=== PATIENT | female | born 1955 | race Caucasian/White ===

== ENCOUNTER 2020-09-24 07:51 | Outpatient (REF) | payer OTHER, SELFPAY ==
--- NOTE | 2020-09-26 07:59 | MHC.AU.P13 ---
Adult Audiological Evaluation Date of Visit: 09/24/20 Syrup Mixer Used: Not Applicable Reason for Appointment: Audiologic re-evaluation due to increasing difficulties hearing and understanding speech. Tricia also reports the left hearing aid intermittently is not working properly. Previous Hearing Test Results: 01/15/2019 [facility] Bilateral moderate to severe sensorineural hearing loss with 100% speech discrimination ability for both ears. Medical History: Medical History: Headache Thyroid Disease History of brain bleed in November 2018 Medication List: Not available for review Hearing Instrument History- Right Ear: Solid Waste Facility Operator: Phonak Model: Bolero Q 70-M13 Serial Number: [id number] Battery Size: 13 Warranty: Dispensed By: [facility] Date of Fittin08/01/2013 Hearing Instrument History- Left Ear: Solid Waste Facility Operator: Phonak Model: Bolero Q 70-M13 Serial Number: [id number] Battery Size: 13 Warranty: Dispensed By: [facility] Date of Fittin08/01/2013 Otoscopy: Right Ear: Unremarkable Left Ear: Unremarkable Tympanometry: Right Ear: Hypercompliant Middle Ear System (Type Ad) Left Ear: Normal Middle Ear System (Type A) Hearing Evaluation: Transducer(s) Used: Insert Earphones Bone Conduction Method: Conventional Audiometry Stimuli Used: Pure Tones Right Ear: Description of Hearing: Moderate sloping to severe sensorineural hearing loss Left Ear: Description of Hearing: Moderate sloping to severe sensorineural hearing loss Speech Recognition Threshold (SRT): Method Used: Monitored Live Voice Stimuli Used: Spondee Words Right Ear: 50 dB HL Left Ear: 50 dB HL Word Discrimination: Method: Recorded Lists Word Lists Used: NU-6 Right Ear: 100% at 85 dB HL Left Ear: 96% at 85 dB HL Comparison: Compared to the most recent evaluation: Hearing is stable. Recommendations: Recommendations: Audiological re-evaluation in one year. Trial with new amplification is recommended due to increased hearing difficulties with the hearing aids despite stable hearing ability. Medical clearance from a physician is required before fitting. Patient plans to contact [facility]. See Hearing Aid Follow-Up note for more information. Diagnosis: Primary Diagnosis: H90.3 Bilateral Sensorineural Hearing Loss Services Performed: Services Performed: Comprehensive Audiological Evaluation (CPT 03609) Tympanometry (CPT 05696) Signature: Provider: Pelon Trujillo, RAMANDEEP-A
--- NOTE | 2020-09-26 08:03 | MHC.AU.P13 ---
Hearing Instrument Follow-Up- Binaural Date of Visit: 09/24/20 Right Ear: Fire Control Assistant: Phonak Model: Yebolero Q 70-M13 Serial Number: [id number] Warranty: Service Plan: Battery Size: 13 Color: [place] Tubing: #2 slim tube Type of Mold: Phonak slim tip [id number] Warranty extended to 09/24/2020 Type of Wax Guard: None Dispensed By: [facility] Date of Fittin08/01/2013 Left Ear: Fire Control Assistant: Phonak Model: Bolero Q 70-M13 Serial Number: [id number] Warranty: Battery Size: 13 Color: [place] Tubing: #2 slim tube Type of Mold: Phonak slim tip [id number] WARRANTY Type of Wax Guard: None Dispensed By: [facility] Date of Fittin08/01/2013 Follow-Up Summary: Patient reports not hearing well with the aids and intermittent distortion from the left aid. Right slim tip received in February 2020 falls off the slim tube and this problem started shortly after being received. Called [email or web address] Customer [employer]. Per Earnestine N/C remake Ref# [id number] will be sent. Cleaned aids, microphones, contacts. Changed slim tubes and patient will use the right tip as she has been until the remake is received. Aids amplifying well, but patient says there is no change in sound quality. Recommend new hearing aids. Discussed Phonak Audeo P 13T in [place] with #2 M receivers for both aids with slim tips. Patient will contact [facility] and a quote will be sent and medical clearance to PCP. Recommendations: Recommendations: Hearing instrument follow-up or maintenance as needed. Please contact our clinic with any questions or concerns. Recommendations (Other): Call patient when right slim tip received and SCHEDULE APPOINTMENT WITH EARMOLD IMPRESSIONS TO BE TAKEN Diagnosis Code(s): Primary Diagnosis: H90.3 Bilateral Sensorineural Hearing Loss Services Performed: Hearing Aid Maintenance and Hearing Aid Evaluation: Signature: Provider: Pelon Trujillo, [facility]
--- NOTE | 2020-09-26 08:08 | MHC.AU.MED ---
Medical Clearance for Hearing Instrumentation Date: 09/26/20 Patient Name: Tricia Chua Date of : 1955 Primary Care Provider: Referring Provider: Xander Angelo MD We have seen your patient on 09/26/20 and have determined that they are a candidate for amplification (See accompanying report). Specifically, they would benefit from: Hearing aid use in both ears There is a statute that addresses Medical Evaluation Requirements prior to fitting a patient with a hearing aid. According to [place] statute 265 CMR:6.03(1), (a) General. Except as provided in 265 CMR 6.03(1)(b), a hearing therapist shall not sell a hearing aid unless the prospective user has presented to the hearing therapist a written statement signed by a licensed physician that states that the patient's hearing loss has been medically evaluated and the patient may be considered a candidate for a hearing aid. The medical evaluation must have taken place within the preceding six months. Please note: Due to the [place] Statute referenced above, we cannot accept a signature other than that of a licensed physician. BOOM STICK MAN and PA signatures cannot be accepted. I am in agreement with the above recommendation. There is no medical contraindication for hearing instrumentation. Physician Signature Date Physician Name (Printed)
== END 2020-09-24 07:52 | disposition home or self-care (01) ==
LOC: HO.SH 07:51
PROVIDERS: Visit Provider Internal Medicine
DX: H90.3 Sensorineural hearing loss, bilateral (principal)
CPT/HCPCS: 92557; 92567

== ENCOUNTER 2020-10-16 09:57 | Outpatient (REF) | payer SELFPAY | END 2020-10-16 09:58 | disposition home or self-care (01) | LOC: HO.HAP 09:57 | PROVIDERS: Visit Provider Internal Medicine | DX: Z13.89 Encounter for screening for other disorder (principal) ==

== ENCOUNTER 2020-10-31 08:56 | Outpatient (REF) | payer SELFPAY | END 2020-10-31 08:57 | disposition home or self-care (01) | LOC: HO.HAP 08:56 | PROVIDERS: Visit Provider Internal Medicine | DX: Z13.89 Encounter for screening for other disorder (principal) ==

== ENCOUNTER 2021-09-16 08:44 | Outpatient (REF) | payer SELFPAY ==
--- NOTE | 2021-09-16 13:52 | MHC.AU.HFU ---
Hearing Instrument Follow-Up- Binaural Date of Visit: 09/16/21 Right Ear: Agri Business Agent: Phonak Model: Bolero Q 70-M13 Serial Number: [id number] Repair Warranty: Battery Size: 13 Color: [place] Tubing: #2 slim tube Type of Mold: Phonak slim tip, [id number], Warranty extended to 09/24/2020 Type of Wax Guard: None Dispensed By: [facility] Date of Fittin08/01/2013 Left Ear: Agri Business Agent: Phonak Model: Bolero Q 70-M13 Serial Number: [id number] Repair Warranty: Battery Size: 13 Color: [place] Tubing: #1 slim tube Type of Mold: Phonak slim tip, [id number], WARRANTY Type of Wax Guard: None Dispensed By: [facility] Date of Fittin08/01/2013 Follow-Up Summary: Patient reports that she accidentally broke a piece of her right slim tip off while cleaning it. She is unsure if she needs a new mold, or if an older right-sided slim tip that she kept could be put on it. Both hearing aids were inspected and cleaned. Slim tubes replaced. The older slim tip was placed on the right hearing aid. Patient reports that for now, the old slim tip feels and sounds good. An impression was taken of the right ear in case issues arise with the older right slim tip and a new slim tip needs to be ordered. It will be kept in the hold drawer until we hear from the patient. Recommendations: Hearing instrument follow-up or maintenance as needed. Paid $10 for maintenance. Diagnosis Code(s): Primary Diagnosis: H90.3 Bilateral Sensorineural Hearing Loss Signature: Provider: Pelon Mcconnell, [facility]
== END 2021-09-16 08:45 | disposition home or self-care (01) ==
LOC: HO.HAP 08:44
PROVIDERS: Visit Provider Internal Medicine
DX: Z46.1 Encounter for fitting and adjustment of hearing aid (principal); H90.3 Sensorineural hearing loss, bilateral
CPT/HCPCS: 99499

== ENCOUNTER 2021-12-09 11:23 | Outpatient (REF) | payer MEDICARE, OTHER, SELFPAY ==
--- NOTE | 2021-12-09 13:29 | MHC.AU.MED ---
Medical Clearance for Hearing Instrumentation Date: 12/09/21 Patient Name: Tricia Edward Date of : 1955 Primary Care Provider: Referring Provider: Xander Angelo MD We have seen your patient on 12/09/21 and have determined that they are a candidate for amplification (See accompanying report). Specifically, they would benefit from: Hearing aid use in both ears There is a statute that addresses Medical Evaluation Requirements prior to fitting a patient with a hearing aid. According to [place] statute 265 CMR:6.03(1), (a) General. Except as provided in 265 CMR 6.03(1)(b), a floor space allocator shall not sell a hearing aid unless the prospective user has presented to the floor space allocator a written statement signed by a licensed physician that states that the patient's hearing loss has been medically evaluated and the patient may be considered a candidate for a hearing aid. The medical evaluation must have taken place within the preceding six months. Please note: Due to the [place] Statute referenced above, we cannot accept a signature other than that of a licensed physician. SCENE PAINTER and PA signatures cannot be accepted. I am in agreement with the above recommendation. There is no medical contraindication for hearing instrumentation. Physician Signature Date Physician Name (Printed)
--- NOTE | 2021-12-09 13:39 | MHC.AU.HAS ---
Hearing Aid Evaluation Date of Visit: 12/09/21 Historical Information: Description of Hearing: Moderate to severe sensorineural hearing loss bilaterally. Current personal amplification information, if applicable: 2012 binaural Phonak Bolero Q 70-M13 BTE with slim tubes and canal tips Hearing Aid Prescription: Based on the individual?s shared listening needs, communication environments, dexterity, desire for connectivity, and personal preferences, the following prescription for amplification has been made: Right ear: Livestock Broker: Phonak Model: Audeo P 13T NEED TO KNOW TECHNOLOGY LEVEL Battery Size: 13 Color: [place] Tubing: #1 Power Type of Mold: Phonak Canal Lock C-Shell Left ear: Left ear prescription to be same as Right Hearing Aid above: Livestock Broker: Phonak Model: Audeo P 13T NEED TECHNOLOGY LEVEL PATIENT CHOOSES Battery Size: 13 Color: [place] Patriot Missile Air Defense Artillery: #1 Power Type of Mold: Phonak Canal Lock C-Shell Action Taken/Action Needed: Earmold Impressions Taken Comments: Patient plans to contact [facility] to determine if she is eligible for services. If not eligible, patient needs to tell which technology level she wants to order. DID NOT PAY $350.00 deposit fee. Primary Diagnosis: H90.3 Bilateral Sensorineural Hearing Loss Signature:Provider: Meron Trujillo, CCC-A
--- NOTE | 2021-12-21 11:51 | MHC.AU.AHA ---
Adult Audiological Evaluation Date of Visit: 12/09/21 Institutional Asset Manager Used: Not Applicable Reason for Appointment: Audiologic re-evaluation due to increasing speech understanding difficulties. Tricia has a history of bilateral hearing loss and uses binaural hearing aids obtained through [facility] ([facility]) in 2012. She also has a history of stroke in 2010 and brain bleed in 2018 and reports her ability to process auditory information is more difficult and slower, particularly when others speak quickly to her, from a distance/different room, or background noise is present. Previous Hearing Test Results: 09/24/2020 [facility] Moderate to moderately-severe sensorineural hearing loss bilaterally with 100% speech understanding for the right ear and 96% for the left ear at 85 dB HL in the ideal quiet environment. Medical History: Medical History: Headache, Stroke, Thyroid Disease, History of brain bleed in November 2018 Medication List: Atorvastatin, Levothyroxine, Aspirin Hearing Instrument History- Right Ear: Fruit And Vegetable Packer: [employer] Model: AutoAlert 70-M13 Serial Number: [id number] Battery Size: 13 Repair Warranty: 2015 Dispensed By: [facility] Date of Fittin08/01/2013 Hearing Instrument History- Left Ear: Fruit And Vegetable Packer: [employer] Model: [employer] Q 70-M13 Serial Number: [id number] Battery Size: 13 Repair Warranty: 2015 [facility] Date of Fittin08/01/2013 Otoscopy: Right Ear: Unremarkable Left Ear: Unremarkable Tympanometry: Not performed at today's visit Hearing Evaluation: Transducer(s) Used: Insert Earphones Bone Conduction Method: Conventional Audiometry Stimuli Used: Pure Tones Right Ear: Description of Hearing: Moderate to severe sensorineural hearing loss. Left Ear: Description of Hearing: Moderate to severe sensorineural hearing loss. Speech Recognition Threshold (SRT): Method Used: Monitored Live Voice Stimuli Used: Spondee Words Right Ear: 45 dB HL Left Ear: 50 dB HL Word Discrimination: Method: Recorded Lists Word Lists Used: NU-6 Right Ear: 92% at 85 dB HL Left Ear: 92% at 85 dB HL Most Comfortable Level (MCL): Right Ear: 85 dB HL Left Ear: 85 dB HL QuickSIN: Binaural Quick SIN Test: 8 dB SNR Loss, suggesting Tricia experiences a moderate degree of difficulty understanding speech with increasing levels of background noise when in this controlled test environment. Real world listening situations are likely to be much more difficult for Tricia. Comparison: Compared to the most recent evaluation: Hearing is stable. Recommendations: Trial with new amplification is recommended. Medical clearance from a physician is required before fitting. Patient plans to contact [facility] ([facility]). If Tricia is not eligible for [facility] services, she is advised to call the office to discuss which technology level for the new hearing aids she would like to order. Hearing aid maintenance performed today. Audiological re-evaluation in one year. Will send a reminder card. Diagnosis: Primary Diagnosis: H90.3 Bilateral Sensorineural Hearing Loss Services Performed: Comprehensive Audiological Evaluation (CPT 10871) Signature: Provider: Pelon Trujillo, CCC-A
== END 2021-12-09 11:24 | disposition home or self-care (01) ==
LOC: HO.SH 11:23
PROVIDERS: Visit Provider Internal Medicine
DX: Z01.118 Encounter for examination of ears and hearing with other abnormal findings (principal); H90.3 Sensorineural hearing loss, bilateral
CPT/HCPCS: 92557

== ENCOUNTER 2023-03-29 08:23 | Outpatient (REF) | payer SELFPAY | END 2023-03-29 08:24 | disposition home or self-care (01) | LOC: HO.HAP 08:23 | PROVIDERS: Visit Provider Internal Medicine | DX: Z13.89 Encounter for screening for other disorder (principal) ==

== ENCOUNTER 2023-04-13 09:09 | Outpatient (REF) | payer MEDICARE, OTHER, SELFPAY | END 2023-04-13 09:10 | disposition home or self-care (01) | LOC: HO.SH 09:09 | PROVIDERS: Visit Provider Internal Medicine | DX: Z01.118 Encounter for examination of ears and hearing with other abnormal findings (principal); H90.3 Sensorineural hearing loss, bilateral | CPT/HCPCS: 92557; 92567 ==

== ENCOUNTER 2023-04-13 10:23 | Outpatient (REF) | payer MEDICARE, OTHER, SELFPAY ==
--- NOTE | 2023-04-13 13:24 | MHC.AU.HFU ---
Hearing Instrument Follow-Up- Binaural Date of Visit: 04/13/23 Right Ear: Director Intelligence Analysis Programs: Phonak Model: Bolero Q 70-M13 Serial Number: [id number] Repair Warranty: Loss and Damage Warranty: Type of Mold: slim tip Dispensed By: [facility] Date of Fittin08/01/2013 Left Ear: Director Intelligence Analysis Programs: Phonak Model: Bolero Q 70-M13 Serial Number: Phonak Kaykay Q70-13, #[id number] Repair Warranty: Loss and Damage Warranty: Type of Mold: Slim tip Dispensed By: [facility] Date of Fittin08/01/2013 Follow-Up Summary: Patient was seen for an updated audiogram today. She was also issued new slim tips and slim tubes. Cleaned the hearing aids and vacuumed microphones. She reported comfortable fit with the new slim tips. She also asked if we could try connecting her Compilot with her phone, but the Compilot was not charged. Provided her a print out with pairing instructions. Recommendations: Recommendations: Patient stated that she wasn't prepared to pay for the earmolds today and wants to be billed. She thought it should be billed to her insurance but advised that we do not bill insurance for hearing aids or earmolds. She asked for a bill today so she could try submitting to insurance herself. She was advised that the bill would have to come from our billing department and she will get it in the mail. Diagnosis Code(s): Primary Diagnosis: H90.3 Bilateral Sensorineural Hearing Loss Signature: Provider: Emely Delatorre, [facility]
== END 2023-04-13 10:24 | disposition home or self-care (01) ==
LOC: HO.HAP 10:23
PROVIDERS: Visit Provider Internal Medicine
DX: Z46.1 Encounter for fitting and adjustment of hearing aid (principal); H90.3 Sensorineural hearing loss, bilateral
CPT/HCPCS: V5264

== ENCOUNTER 2024-08-14 12:09 | Outpatient (REF) | payer MEDICARE, OTHER, SELFPAY ==
[2024-08-14 13:18] LABS: Erythrocyte Sedimentation Rate 15 MM/HR (0-20)
[2024-08-16 06:23] LABS: Lyme Abs Screen <0.90 index
[2024-08-17 13:48] LABS: Anti Nuclear Antibody Screen NEGATIVE (NEGATIVE)
== END 2024-08-14 12:10 | disposition home or self-care (01) ==
LOC: HO.LAB 12:09
PROVIDERS: PCP Internal Medicine; Visit Provider Psychiatry & Neurology Neurology
DX: G93.40 Encephalopathy, unspecified (principal)
CPT/HCPCS: 36415; 85652; 86038; 86617; 86618

== ENCOUNTER 2025-04-09 11:50 | Outpatient (AMB) | payer MEDICARE, OTHER, SELFPAY ==
--- NOTE | 2025-04-09 11:59 | MHC.OFFVIS ---
Intake Visit Reasons: 6 mnts Allergies No Known Allergies Allergy (Verified 04/03/25 11:53) Medication List - Last Reconciled 04/09/25 by Eric Cabrera MD amitriptyline 25 mg PO BEDTIME ascorbate calcium (vitamin C) 500 mg PO BID aspirin 81 mg PO DAILY atorvastatin 80 mg PO DAILY cholecalciferol (vitamin D3) 25 mcg PO DAILY escitalopram oxalate 10 mg PO DAILY levothyroxine 75 mcg PO DAILY HPI Comments Details: 69 years old woman with chronic tension-type headaches. She has been having headaches for years and had been evaluated at [facility] and also [facility]. She had multiple scans done. Her symptoms have included headaches, facial and body numbness, and blurred vision. She continues to complain of a tingling feeling on left side of her face sometime with blurred vision lasting for a minute or 2. 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 HEENT:?No headache, vision changes, hearing loss, nasal congestion, sore throat. Neurological:? Left-sided facial tingling Psychiatric:?No anxiety, depression, mood swings, sleep disturbance, or hallucinations. Endocrine:?No heat/cold intolerance, polydipsia, polyuria, or hair/skin changes. Hematologic/Lymphatic:?No easy bruising, bleeding, or lymphadenopathy. Integumentary (Skin):?No rash, lesions, itching, or color changes. ? Physical Exam Neuro Other: Mental Status: Alert and oriented to person, place, and time. Normal attention. Normal spontaneous speech, fluency, and comprehension. No obvious issues with mood and memory. Affect is appropriate. Cranial Nerves: CN II: Visual mojica full to confrontation, visual acuity intact. CN III, IV, : Pupils equal, round, reactive to light and accommodation. Extraocular movements are normal. CN V: Facial sensation is normal. CN VII: Facial movements symmetrical. CN VIII: Hearing intact to bedside conversation is normal. CN IX, X: Palate elevates symmetrically. CN XI: Shoulder shrug and head turn symmetrical. CN XII: Tongue midline without atrophy or fasciculations. Extrapyramidal: Full facial expressions and blinking. No rigidity. Movements are appropriate with no tremor or abnormality. Speech: Normal; no dysarthria or tremor. Assessment & Plan Assessment & Plan (1) Migraine equivalent syndrome: Comment: Meds tried: Topiramate, amitryptiline MRI brain WO at [place] in March 2024: a few small non specific WM lesions, ?mild MVD, mild biparietal atrophy, R cerebellar venous angioma CT brain WO at [facility] in Jul 2018: No acute abn (reported) CTA brain and neck at [facility] in Jul 2018: OK (reported. Code(s): G43.109 - Migraine with aura, not intractable, without status migrainosus Category: Medical Plan Impression: a: Chronic migraine, mild at this time b: Migraine equivalent syndrome causing left sided facial numbness and blurred vision Rec: a: DC amitryptiline b: At this time, symptoms are mild. If they become more bothersome, I suggest trying propranalol 20mg or verapamil 40mg a day. Medications: Discontinued amitriptyline Discontinued Reason: Doctor's Order 25 mg PO BEDTIME 90 tabs 0RF Coding Level of Care Code Est Pt Level 4 (38713) Diagnoses Migraine equivalent syndrome G43.109
--- OUTSIDE RECORDS SUMMARY | 2025-04-09 13:04 | XMS_ITS | Clinical Summary ---
Author Organization [facility] Superbly Address [address] [facility] [place] [address] Phone Care Team Providers Care Motor Vehicle Representative Name Role Phone Xander Angelo MD Primary Care Provider Allergies No known active allergies Medications aspirin 81 mg chewable tablet Take 81 mg by mouth daily. Active atorvastatin (LIPITOR) 80 mg tablet Take 80 mg by mouth daily. 07/09/2019 Active levothyroxine (SYNTHROID, LEVOTHROID) 75 mcg tablet Take 1 Tablet by mouth daily. Active omeprazole (PRILOSEC) 20 mg tablet,delayed release (DR/EC) Take by mouth as needed. Active escitalopram (LEXAPRO) 10 mg tablet Take 1 tablet (10 mg total) by mouth 1 (one) time each day. Active cholecalciferol (VITAMIN D-3) 25 mcg (1,000 unit) tablet Take 1 tablet (1,000 Units total) by mouth 1 (one) time each day. Active amitriptyline (ELAVIL) 10 mg tablet Take 1 tablet (10 mg total) by mouth at bedtime. Active Active Problems Problem Noted Date Diagnosed Date Cerebrovascular accident (CV A) due to vascular occlusion (CMS/HCC V24, CMS/HCC V28) 01/23/2025 Hypothyroidism 01/22/2025 Diverticulosis 09/25/2024 Gastritis 09/25/2024 GERD (gastroesophageal reflux disease) Hemorrhoids 09/25/2024 Hiatal hernia 09/25/2024 IBS (irritable bowel syndrome) 09/25/2024 Left lower quadrant pain 09/25/2024 Nausea 09/25/2024 Nonrheumatic mitral valve regurgitation 11/16/19 24 Overview (09/25/2024): Last Assessment & Plan: Patient is history of mild mitral regurgitation. She denies any clinical symptoms of heart failure and she is euvolemic on physical examination. We will update an echocardiogram. Dizziness and giddiness 11/19/2020 Malaise and fatigue 11/19/2020 Occlusion and stenosis of bilateral carotid lance adrienne 11/19/2020 Palpitations 11/19/2020 Overview (09/25/2024): Last Assessment & Plan: Patient denies any significant palpitations. She states that she had palpitations in the past with hyperactivity on her thyroid replacement. She recently had labs completed with her primary care provider and was told that her levels were within normal limits. We will obtain for our review. She has not had any medications to treat her palpitations at this time. Pure hypercholesterolemia 11/19/2020 Overview (09/25/2024): Last Assessment & Plan: Lipids are monitored by her primary care provider. Transient cerebral ischemia 11/19/2020 Resolved Problems Problem Noted Date Diagnosed Date Resolved Date Tubular adenoma of colon 09/25/202403/2025 Overview (09/25/2024): From transverse colon Dyspnea 11/20/2020 01/23/2025 Overview (09/25/2024): Last Assessment & Plan: We did discuss her dyspnea. This is likely due to deconditioning. She has no evidence of heart failure or unstable angina. I have encouraged her to increase her exercise duration and intensity. If her breathing does not improve she will call us and let us know and then we will evaluate this further. She did have a stress test and echocardiogram about 2 years ago. Benign essential hypertension 11/19/2020 01/23/2025 Overview (09/25/2024): Last Assessment & Plan: Patient's blood pressure is well-controlled with a reading today of 132/84. I have reviewed with the patient the importance of a heart healthy lifestyle which includes eating a low-fat low-salt diet, getting regular exercise, maintaining a healthy weight, not smoking, and following up with routine medical care. Encounters Date Type Department Care Team Description 01/23/2025 8:36 AM EDT Anesthesia Event [facility] [place] [address] [place] [id number] Barbara Miller MD 01/23/2025 8:30 AM EDT - 01/23/2025 10:45 AM EDT Surgery [facility] OR [address] [place] [id number] Sven Estrada DPM HALLUX RIGIDUS CORRECTION W/JOINT REPLACEMENT/IMPLANT LEFT FOOT [42131 (CPT )] 01/23/2025 6:56 AM EDT - 01/23/2025 11:18 AM EDT Hospital Encounter [facility] [place] [address] [place] [phone] Sven Estrada DPM Hallux rigidus, left foot Discharge Disposition: Home or Self Care 01/10/2025 10:45 AM EDT Ancillary Procedure [facility] [address] [place] [id number] Cerebrovascular accident (CVA), unspecified mechanism (CMS/HCC V24, CMS/HCC V28); Carotid stenosis, asymptomatic, bilateral from Last 3 Months Surgical History Surgery Date Site/Laterality Comments ESOPHAGOGASTRODUODENOSCOPY PROCEDURE: OR EGD TRANSORAL BIOPSY SINGLE/MULTIPLE; COMMENT: Performed at [facility] in 2016 with colonoscopy COLONOSCOPY PROCEDURE: HISTORICAL COLONOSCOPY; COMMENT: Performed in 2015 with EGD at [facility] COLONOSCOPY PROCEDURE: HISTORICAL COLONOSCOPY; COMMENT: Performed on November 17, [address] Rachid Graf-EGD performed as well ESOPHAGOGASTRODUODENOSCOPY PROCEDURE: OR EGD TRANSORAL BIOPSY SINGLE/MULTIPLE; COMMENT: Performed along with colonoscopy on September 16, 202020 OTHER SURGICAL HISTORY HYSTERECTOMY MENISCECTOMY Right CYST REMOVAL groin Medical History Medical History Date Comments Left lower quadrant pain DX:Left lower quadrant pain IBS (irritable bowel syndrome) D X:IBS (irritable bowel syndrome) GERD (gastroesophageal reflux disease) DX:GERD (gastroesophageal reflux disease) Diverticulosis DX:Diverticulosi s Nausea DX:Nausea Hiatal hernia DX:Hiatal hernia Gastritis DX:Gastritis Hemorrhoids DX:Hemorrhoids Tubular adenoma of colon DX:Tubu lar adenoma of colon; COMMENT: From transverse colon Hypothyroidism DX:Hypothyroidis m Idiopathic trigeminal neuropathy DX:Idiopathic trigeminal neuropathy Bilateral knee pain DX:Bilateral knee pain Anxiety DX:Anxiety Hyperglycemia DX:Hyperglycemia Hearing loss DX:Hearing loss Major depressive disorder wi th single episode DX:Major depressive disorder with single episode Thoracic back sprain DX:Thoracic back sprain Patellofemoral stress syndrome D X:Patellofemoral stress syndrome Carpal tunnel syndrome DX:Carpal tunnel syndrome Hyperlipidemia DX:Hyperlipidemi a Chronic kidney disease Stroke ([facility] V24, [facility] V28) 2010 Joint pain Arthritis Family History Medical History Relation Name Comments Heart attack Father Stroke Father Diabetes Mother Hyperlipidemia Mother Hypertension Mother Thyroid disease Mother Relation Name Status Comments Father (Age 87) Mother Alive Social History Tobacco Use Types Packs/Day Years Used Date Smoking Tobacco: Former Cigarettes Q uit: 09/19/2010 Smokeless Tobacco: Never Alcohol Use Standard Drinks/Week Comments Yes 0 (1 standard drink = 0.6 oz pur e alcohol) Comments No Sex and Gender Information Value Date Recorded Sex Assigned at Not on file Legal Sex Female 10:01 AM EST Gender Identity Not on file Sexual Orientation Not on file Obstetrics History Last Filed Vital Signs Vital Sign Reading Time Taken Comments Blood Pressure 134/70 01/23/2025 10:33 AM EDT Pulse 69 01/23/2025 10:33 AM EDT Temperature 36.2 C (97.2 F) 01/23/2025 10:11 AM EDT Respiratory Rate 16 01/23/2025 10:11 AM EDT Oxygen Saturation 99% 01/23/2025 10:33 AM EDT Inhaled Oxygen Concentration - - Weight 77.1 kg (170 lb) 01/16/2025 11:00 AM EDT Height 154.9 cm (5' 1 ) 01/16/2025 11:00 AM EDT Body Mass Index 32.12 01/16/2025 11:00 AM EDT Plan of Treatment Health Maintenance Due Date Last Done Comments Zoster Vaccines (1 of 2) 1974 Hepatitis C Screening 08/28/2022 Osteoporosis Screening (Bone Density Screening) 08/28/2022 Social Influencers of Health Screening 08/28/2022 Hypertension/CHF/CAD Annual BMP Blood Test 09/02/2022 Medicare Annual Wellness Visit 05/04/2024 05/04/2023 COVID-19 Vaccine ( season) 2024 09/08/2022, 09/04/2021, 01/19/2021, Additional history exists Depression Screening 09/19/2024 Breast Cancer Screening 12/20/2024 12/20/2022 Influenza Vaccine (#1) 2025 9, 07/14/2018, 08/10/2017 Colorectal Cancer Screening: Colonoscopy 09/16/2025 09/16/2020, 09/16/2020 Falls Risk Assessment 01/23/2026 01/23/2025 DTaP,Tdap,and Td Vaccines (3 - Td or Tdap) 02/14/2029 02/14/2019, 09/19/2009 Cholesterol Screening (Lipid Panel) 12/11/2029 12/11/2024 RSV Immunization Adult Patients (1 - 1-dose 75+ series) 2031 Pneumococcal Vaccine: 50+ Years Completed 04/20/2022 HIB Vaccines Aged Out No longer eligi ble based on patient's age to complete this topic HPV Vaccines Aged Out No longer eligi ble based on patient's age to complete this topic Hepatitis A Vaccines Aged Out No long er eligible based on patient's age to complete this topic Hepatitis B Vaccines Aged Out No long er eligible based on patient's age to complete this topic IPV Vaccines Aged Out No longer eligi ble based on patient's age to complete this topic MMR Vaccines Aged Out No longer eligi ble based on patient's age to complete this topic Meningococcal ACWY Vaccine Aged Out N o longer eligible based on patient's age to complete this topic Meningococcal B Vaccine Aged Out No l onger eligible based on patient's age to complete this topic RSV Immunization Patients Under 20 months Aged Out No longer eligible based on patient's age to complete this topic Varicella Vaccines Aged Out No longer eligible based on patient's age to complete this topic Medical Devices Implanted Type Area Vp Product Marketing Device Identifier Shelf Expiration Date Model / Serial / Lot Toe Great Primus W/Grmt Sz30 - Sna - [id number] Implanted:Qty: 1 on 01/23/2025 by Sven Estrada DPM at [facility] Joints Left: Foot RAMIREZ AND NEPHEW- EXTREMITY ORTHO (FRMR [employer]TE[employer]) 10/20/2028 [id number]-[id number] / NA / [id number] Procedures Procedure Name Priority Date/Time Associated Diagnosis Comments TISSUE EXAM Routine 01/23/2025 9:35 AM EDT Hallux rigidus, left foot OR HALLUX RIGIDUS JOZEF W CHEILECTOMY DEBR & CAPSULAR RLS 1ST MPJ W IMPLANT 01/23/2025 8:34 AM EDT Hallux rigidus, left foot Case Notes CONMED POWER, ROUND & SIDE CUTTING BURRS,TOURNIER/FUTURA PRIMUS GREAT TOE IMPLANTS & INSTRUMENTATION VAS US DUPLEX CAROTID BILATERAL Routine 01/10/2025 10:58 AM EDT Cerebrovascular accident (CVA), unspecified mechanism (CMS/HCC V24, CMS/[facility] V28) Carotid stenosis, asymptomatic, bilateral LIPID PANEL Routine 12/11/2024 9:51 AM EDT Cerebrovascular accident (CVA), unspecified mechanism (CMS/HCC V24, CMS/HCC V28) HM COLONOSCOPY Routine 09/16/2020 from Last 3 Months or Most Recently Relevant to Health Maintenance Results * Tissue exam (01/23/2025 9:35 AM EDT) Final Diagnosis Left, 1st metatarsal head: -DEGENERATIVE OSTEOARTHROPATHY, CONSISTENT WITH HALLUX RIGIDUS / EXOSTOSIS 01/25/2025 11:55 AM EDT [facility] Gross Description A. Foot, Left, 1st metatarsal head: Labeled left foot . Received in formalin are two shavings of yellow to red indurated bone measuring approximately 2.0 cm in greatest diameter which have a deleon-pink articular surface. One portion of bone has a focally eburnated articular surface. The specimen is sectioned and a career services representative section from each portion of tissue is submitted in one cassette, two pieces, following decalcification. TS 01/25/2025 11:55 AM EDT [facility] Disclaimer Unless otherwise specified, all tissue is 10% NB formalin fixed and paraffin embedded. 01/25/2025 11:55 AM EDT [facility] Bone Structure of left foot / Unknown 01/23/2025 9:35 AM EDT 01/23/2025 10:48 AM EDT us Sven Estrada DPM LAB PATHOLOGY ORDERABL ES Final Result [facility] [address] [place] [address], [place] [phone] * Vascular US duplex carotid bilateral (01/10/2025 10:58 AM EDT) Left CCA dist sys 72 cm/s CV [facility] LAB Left CCA dist casanova 22 cm/s [facility] LEFT COMMON CAROTID ARTERY MID S 72 cm/s [facility] LEFT COMMON CAROTID ARTERY MID D 22 cm/s CV [facility] LAB Left CCA prox sys 85 cm/s CV VAS LAB Left CCA prox casanova 27 cm/s CV V[facility] LAB Left ICA dist sys 68 cm/s CV VAS LAB Left ICA dist casanova 25 cm/s CV V[facility] LAB Left ICA mid sys 79 cm/s CV [facility] LAB Left ICA mid casanova 29 cm/s CV V[facility] LAB Left ICA prox sys 61 cm/s CV [facility] LAB Left ICA prox casanova 22 cm/s [facility] Left ECA sys 78 cm/s [facility] LEFT EXTERNAL CAROTID ARTERY D 15 cm/s [facility] Left Prox Subclavian PSV 112 cm/s [facility] Left vertebral sys 41 cm/s [facility] Right cca dist sys 60 cm/s [facility] Right CCA dist casanova 23 cm/s [facility] RIGHT COMMON CAROTID ARTERY MID S 62 cm/s [facility] RIGHT COMMON CAROTID ARTERY MID D 21 cm/s CV [facility] LAB Right CCA prox sys 72 cm/s CV V[facility] LAB Right CCA prox casanova 20 cm/s CV VAS LAB Right ICA dist sys 128 cm/s CV V[facility] LAB Right ICA dist casanova 39 cm/s CV [facility] LAB Right ICA mid sys 108 cm/s CV [facility] LAB Right ICA mid casanova 40 cm/s [facility] Right ICA prox sys 66 cm/s [facility] LAB Right ICA prox casanova 24 cm/s [facility] Right eca sys 79 cm/s [facility] RIGHT EXTERNAL CAROTID ARTERY D 17 cm/s [facility] Right Prox Subclavian PSV 96 cm/s [facility] Right vertebral sys 36 cm/s [facility] Right ICA/CCA sys 1.70 [facility] Left ICA/CCA sys 1.10 [facility] Right arm BP 124 mmHg [facility] Left arm BP 130 mmHg [facility] Anatomical Region Laterality Modality Vascular, Abdomen Ultrasound Narrative 01/13/2025 3:37 PM EDT Right proximal ICA: There is minimal plaque. Left proximal ICA: There is minimal plaque. RIGHT. 1. There is atherosclerotic plaque in the carotid system as noted above. 2. There is less than 50% stenosis in the internal carotid artery based on Doppler velocity. 3. The subclavian artery has normal Doppler flow pattern. 4. Vertebral artery has normal antegrade flow. LEFT. 1. There is atherosclerotic plaque in the carotid system as noted above. 2. There is less than 50% stenosis in the internal carotid artery based on Doppler velocity. 3. The subclavian artery has normal Doppler flow pattern. 4. Vertebral artery has normal antegrade flow. Right Carotid The CCA has no significant plaque. The proximal ICA has minimal plaque. The ECA has no significant plaque. Right BP= 124/55 Vertebral flow is antegrade. Left Carotid The CCA has no significant plaque. The proximal ICA has minimal plaque. The ECA has no significant plaque. Left QD=964/65 Vertebral flow is antegrade. Glass Furnace Operator Details A howard scale, color and doppler analysis ultrasound was performed. During the study longitudinal and transverse views were obtained. Pulsed wave doppler was performed. us Lindsey Barrientos MD CV VASCULAR PROCEDURES Final R esult * (ABNORMAL) Lipid panel (12/11/2024 9:51 AM EDT) Cholesterol Total 178 100 - 199 mg/dL [facility] 1 Triglycerides 145 0 - 149 mg/dL [facility] 1 HDL Cholesterol 47 >39 mg/dL [facility] 1 VLDL Cholesterol Calculated 26 5 - 40 mg/dL [facility] 1 LDL Chol Calc ([facility]) 105(H) 0 - 99 mg/dL [facility] 1 Blood Venous blood specimen / Unknown 12/11/2024 9:51 AM EDT 12/11/2024 Narrative [facility] 1 - 12/12/2024 1:06 AM EDT Performed at: 01 - [facility] [address] [id number] Office Worker: Nata Daniel MD, Phone: [phone] Lindsey Barrientos MD LAB BLOOD ORDERABLES Final Res ult [facility] 1 * Colonoscopy (09/16/2020) Pathologist [facility] Colonoscopy Abstracted, no interpretation Anatomical Region Laterality Modality Other us Historical Provider HEALTH MAINTENANCE Final Result from Last 3 Months or Most Recently Relevant to Health Maintenance Insurance MEDICARE [facility] Care Teams Motor Vehicle Representative Relationship Specialty Start Date End Date Xander Angelo MD [address] PCP - General Internal Medicine 10/26/17
--- OUTSIDE RECORDS SUMMARY | 2025-04-09 13:05 | XMS_ITS | Data Portability ---
Author Organization [facility], Main Office Address [address] [facility] [address] [place] [id number] Care Team Providers Care Dog Handler Or Trainer Name Role Phone ARTEMIO ANGELO Primary Care Provider [facility] Referring Provider VIROQUA DERMATOLOGY Referring Provider HANNAH FAUSTIN Orthopedic Surgeon [phone] RADHA JAIN Referring Provider SHIV JAIMES Orthopedic Surgeon SHERI CASTELLON Referring Provider SOPHY NG Porcelain Enameler KEITH CLARKE Referring Provider CRISTIAN HOWE Referring Provider [phone] Assessment Encounter Date Assessment Date Assessment LastModified by Organization Details LastModified Time 01/17/2025 01/17/2025 No medical contraindications to proposed procedure. Shawn Perioperative Cardiac Risk was calculated and the risk for perioperative WA is <1%. May proceed to surgery as planned. [email or web address] Not available 01/17/2025 15:16:15 Plan of Treatment Reminders Order Date Submit Date Provider Last Modified By Organization Details Last Modified Time Details Appointments PE EST 2024 09:45A Anant jimenez MD Not available Not available Not available Lab CBC w/ auto diff 2024 025 DONALDO [facility] (Centralized Electronic Ordering - All Locations), Patient Can Go To The Location Of Their Choice, [id number] 01/18/2025 16:08:02 basic metabol ic 1998 panel, serum or plasma 2024 025 DONALDO [facility] (Centralized Electronic Ordering - All Locations), Patient Can Go To The Location Of Their Choice, 01/18/2025 16:08:03 hemoglo bin A1C, fingers tick 2024 025 DONALDO In-Office Order, Internal Use Only DO Not Attach Compendium DO Not Attach Compendium, Do Not Delete/merge, [id number] 12/05/2024 09:31:58 urinaly sis, dipstic k 2023 024 [email or web address] In-Office Order, Internal Use Only DO Not Attach Compendium DO Not Attach Compendium, Do Not Delete/merge, [id number] 05/22/2024 14:48:24 urinaly sis complet e, reflex culture 2023 024 DONALDO [facility] (Centralized Electronic Ordering - All Locations), Patient Can Go To The Location Of Their Choice, 05/23/2024 12:06:14 TSH, ultra-s ensitiv e, serum 2023 024 DONALDO [facility] (Centralized Electronic Ordering - All Locations), Patient Can Go To The Location Of Their Choice, 05/09/2024 06:09:09 lipid panel, serum 2023 024 DONALDO [facility] (Centralized Electronic Ordering - All Locations), Patient Can Go To The Location Of Their Choice, 05/09/2024 06:09:09 CMP, serum or plasma 2023 024 DONALDO [facility] (Centralized Electronic Ordering - All Locations), Patient Can Go To The Location Of Their Choice, 05/09/2024 06:09:08 CBC w/ auto diff 2023 024 DONALDO [facility] (Centralized Electronic Ordering - All Locations), Patient Can Go To The Location Of Their Choice, 05/09/2024 06:09:07 Referral neurolo gist referra l - Chronic numbnes s at the left side of her face. 2023 024 [email or web address] Eric Cabrera MD, [address], [address], [place], [address], 06/07/2024 14:10:46 Procedures None recorde d. Surgeries None recorde d. Imaging electro cardiog jordan 2024 025 [email or web address] In-Office Order, Internal Use Only DO Not Attach Compendium DO Not Attach Compendium, Do Not Delete/merge, [id number] 01/17/2025 17:16:23 bone density 2023 024 [email or web address] [facility], [address], [address], [place], [address], 08/14/2024 08:13:45 Medication Orders Macrobi d 100 mg capsule 2023 024 DONALDO [id number], [address] [place], [address], 05/23/2024 12:54:50 escital opram 10 mg tablet 2023 024 [email or web address] [id number], [address] [place], [address], 05/30/2024 14:33:32 Patient TargetsNo targets recorded. Patient Instructions Encounter Date Encounter Id Patient Instructions Last Modified By Organization Details Last Modified Time 05/08/2024 [id number] depression treatment: care instructions [email or web address] Not available 05/14/2024 11:01:51 medicines to jorge id with kidney disease: care instructions [email or web address] Not available 05/08/2024 09:55:55 hypothyroidism: care instructions [email or web address] Not available 05/08/2024 09:55:55 high cholesterol : care instructions [email or web address] Not available 05/08/2024 09:55:55 preventing falls : care instructions [email or web address] Not available 05/08/2024 09:50:44 well visit, over 65: care instructions acennerazzo Not available 05/08/2024 09:50:44 05/22/2024 [id number] frequent urination: care instructions [email or web address] Not available 05/22/2024 14:48:23 06/07/2024 [id number] deciding about stopping your antidepressant acennerazzo Not available 06/07/2024 09:57:33 depression treatment: care instructions acennerazzo Not available 06/07/2024 09:57:33 Preventing Depression From Coming Back: Care Instructions [email or web address] Not available 06/07/2024 09:57:33 12/05/2024 [id number] prediabetes: car e instructions [email or web address] Not available 12/05/2024 09:12:56 deciding about stopping your antidepressant acennerazzo Not available 12/05/2024 09:12:56 depression and chronic disease: care instructions acennerazzo Not available 12/05/2024 09:12:56 depression treatment: care instructions acennerazzo Not available 12/05/2024 09:12:56 Preventing Depression From Coming Back: Care Instructions [email or web address] Not available 12/05/2024 09:12:56 recovering from depression: care instructions acennerazzo Not available 12/05/2024 09:12:56 seasonal affecti ve disorder: care instructions acennerazzo Not available 12/05/2024 09:12:55 suicidal thought s in a family member: care instructions acennerazzo Not available 12/05/2024 09:12:56 01/17/2025 [id number] Medications (OTC , herbal therapies, supplements) reviewed and reconciled with patient and or caregiver, including potential side effects, drug interactions, instructions, and the consequences of not taking medication. Reviewed potential barriers to medication adherence, such as side effects from medication or cost of medication. 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 Referring Physician: Artemio Angelo, Family Medicine, Encounter Date: 06/07/2024 Results Created Date Observation Date Name Description Value Unit Range Abnormal Flag Note LastModifiedBy Organization Detail LastModifiedTime 05/08/20 24 05/08/2024 CBC WITH DIFFE RENTI AL/PL ATELE T WBC 6.9 x10e3 /uL 3.4-10 .8 normal Not Available [facility] ([facility]) [address] [facility], [place], [address], 05/09/2024 06:09:07 05/08/20 24 05/08/2024 CBC WITH DIFFE RENTI AL/PL ATELE T RBC 4.17 x10e6 /uL 3.77-5 .28 normal Not Available [facility] ([facility]) [address] [place], [address], 05/09/2024 06:09:07 05/08/20 24 05/08/2024 CBC WITH DIFFE RENTI AL/PL ATELE T hemoglobin 13.2 g/dL 11.1-1 5.9 normal Not Available [facility] ([facility]) [address] [place], [address], 05/09/2024 06:09:07 05/08/20 24 05/08/2024 CBC WITH DIFFE RENTI AL/PL ATELE T hematocrit 39.8 % 34.0-4 6.6 normal Not Available [facility] ([facility]) [address] [place], [address], 05/09/2024 06:09:07 05/08/20 24 05/08/2024 CBC WITH DIFFE RENTI AL/PL ATELE T MCV 95 fL 79-97 normal Not Available [facility] ([facility]) [address] [place], [address], 05/09/2024 06:09:07 05/08/20 24 05/08/2024 CBC WITH DIFFE RENTI AL/PL ATELE T MCH 31.7 pg 26.6-3 3.0 normal Not Available [facility] ([facility]) [address] [place], [address], 05/09/2024 06:09:07 05/08/20 24 05/08/2024 CBC WITH DIFFE RENTI AL/PL ATELE T MCHC 33.2 g/dL 31.5-3 5.7 normal Not Available [facility] ([facility]) [address] [facility], [place], [address], 05/09/2024 06:09:07 05/08/20 24 05/08/2024 CBC WITH DIFFE RENTI AL/PL ATELE T RDW 12.5 % 11.7-1 5.4 Not Available [facility] ([facility]) [address] [facility], [place], [address], 05/09/2024 06:09:07 05/08/20 24 05/08/2024 CBC WITH DIFFE RENTI AL/PL ATELE T platelets 185 x10e3 /uL 150-45 0 normal Not Available [facility] ([facility]) [address] [facility], [place], [address], 05/09/2024 06:09:07 05/08/20 24 05/08/2024 CBC WITH DIFFE RENTI AL/PL ATELE T neutrophils 66 % not estab. normal Not Available [facility] ([facility]) [address] [facility], [place], [address], 05/09/2024 06:09:07 05/08/20 24 05/08/2024 CBC WITH DIFFE RENTI AL/PL ATELE T lymphs 25 % not estab. normal Not Available [facility] ([facility]) [address] [facility], [place], [address], 05/09/2024 06:09:07 05/08/20 24 05/08/2024 CBC WITH DIFFE RENTI AL/PL ATELE T monocytes 8 % not estab. normal Not Available [facility] ([facility]) [address] [facility], [place], [address], 05/09/2024 06:09:07 05/08/20 24 05/08/2024 CBC WITH DIFFE RENTI AL/PL ATELE T eos 1 % not estab. normal Not Available [facility] ([facility]) [address] [facility], [place], [address], 05/09/2024 06:09:07 05/08/20 24 05/08/2024 CBC WITH DIFFE RENTI AL/PL ATELE T basos 0 % not estab. normal Not Available [facility] ([facility]) [address] [facility], [place], [address], 05/09/2024 06:09:07 05/08/20 24 05/08/2024 CBC WITH DIFFE RENTI AL/PL ATELE T immature cells ILLUSTRATOR SET Not Available [facility] ([facility]) [address] [facility], [place], [address], 05/09/2024 06:09:07 05/08/20 24 05/08/2024 CBC WITH DIFFE RENTI AL/PL ATELE T neutrophils (absolute) 4.4 x10e3 /uL 1.4-7. 0 normal Not Available [facility] ([facility]) [address] [facility], [place], [address], 05/09/2024 06:09:07 05/08/20 24 05/08/2024 CBC WITH DIFFE RENTI AL/PL ATELE T lymphs (absolute) 1.7 x10e3 /uL 0.7-3. 1 normal Not Available [facility] ([facility]) [address] [place], [address], 05/09/2024 06:09:07 05/08/20 24 05/08/2024 CBC WITH DIFFE RENTI AL/PL ATELE T monocytes(ab solute) 0.6 x10e3 /uL 0.1-0. 9 normal Not Available [facility] ([facility]) [address] [place], [address], 05/09/2024 06:09:07 05/08/20 24 05/08/2024 CBC WITH DIFFE RENTI AL/PL ATELE T eos (absolute) 0.1 x10e3 /uL 0.0-0. 4 normal Not Available [facility] ([facility]) [address] [facility], [place], [address], 05/09/2024 06:09:07 05/08/20 24 05/08/2024 CBC WITH DIFFE RENTI AL/PL ATELE T baso (absolute) 0.0 x10e3 /uL 0.0-0. 2 normal Not Available [facility] ([facility]) [address] [facility], [place], [address], 05/09/2024 06:09:07 05/08/20 24 05/08/2024 CBC WITH DIFFE RENTI AL/PL ATELE T immature granulocytes 0 % not estab. Not Available [facility] ([facility]) [address] [facility], [place], [address], 05/09/2024 06:09:07 05/08/20 24 05/08/2024 CBC WITH DIFFE RENTI AL/PL ATELE T immature grans (abs) 0.0 x10e3 /uL 0.0-0. 1 Not Available [facility] ([facility]) [address] [facility], [place], [address], 05/09/2024 06:09:07 05/08/20 24 05/08/2024 CBC WITH DIFFE RENTI AL/PL ATELE T NRBC ILLUSTRATOR SET Not Available [facility] ([facility]) [address] [facility], [place], [address], 05/09/2024 06:09:07 05/08/20 24 05/08/2024 CBC WITH DIFFE RENTI AL/PL ATELE T hematology comments: ILLUSTRATOR SET Not Available [facility] ([facility]) [address] [facility], [place], [address], 05/09/2024 06:09:07 05/08/20 24 05/08/2024 COMP. METAB OLIC PANEL (14) glucose 102 mg/dL 70-99 above high normal Not Available [facility] ([facility]) [address] [facility] [place], [address], 05/09/2024 06:09:08 05/08/20 24 05/08/2024 COMP. METAB OLIC PANEL (14) BUN 20 mg/dL 8-27 normal Not Available [facility] ([facility]) [address] [facility] [place], [address], 05/09/2024 06:09:08 05/08/20 24 05/08/2024 COMP. METAB OLIC PANEL (14) creatinine 1.11 mg/dL 0.57-1 .00 above high normal Not Available [facility] ([facility]) [address] [facility] [place], [address], 05/09/2024 06:09:08 05/08/20 24 05/08/2024 COMP. METAB OLIC PANEL (14) eGFR 54 mL/mi n/1.7 3 >59 below low normal Not Available [facility] ([facility]) [address] [facility] [place], [address], 05/09/2024 06:09:08 05/08/20 24 05/08/2024 COMP. METAB OLIC PANEL (14) BUN/creatini ne ratio 18 12-28 normal Not Available [facility] ([facility]) [address] [facility] [place], [address], 05/09/2024 06:09:08 05/08/20 24 05/08/2024 COMP. METAB OLIC PANEL (14) sodium 143 mmol/ L 134-14 4 normal Not Available [facility] ([facility]) [address] [facility] [place], [address], 05/09/2024 06:09:08 05/08/20 24 05/08/2024 COMP. METAB OLIC PANEL (14) potassium 4.4 mmol/ L 3.5-5. 2 normal Not Available [facility] ([facility]) [address] [facility] [place], [address], 05/09/2024 06:09:08 05/08/20 24 05/08/2024 COMP. METAB OLIC PANEL (14) chloride 103 mmol/ L 96-106 normal Not Available [facility] ([facility]) [address] [place], [address], 05/09/2024 06:09:08 05/08/20 24 05/08/2024 COMP. METAB OLIC PANEL (14) carbon dioxide, total 24 mmol/ L 20-29 normal Not Available [facility] ([facility]) [address] [place], [address], 05/09/2024 06:09:08 05/08/20 24 05/08/2024 COMP. METAB OLIC PANEL (14) calcium 9.5 mg/dL 8.7-10 .3 normal Not Available [facility] ([facility]) [address] [facility] [place], [address], 05/09/2024 06:09:08 05/08/20 24 05/08/2024 COMP. METAB OLIC PANEL (14) protein, total 6.9 g/dL 6.0-8. 5 normal Not Available [facility] ([facility]) [address] [facility] [place], [address], 05/09/2024 06:09:08 05/08/20 24 05/08/2024 COMP. METAB OLIC PANEL (14) albumin 4.7 g/dL 3.9-4. 9 normal Not Available [facility] ([facility]) [address] [facility] [place], [address], 05/09/2024 06:09:08 05/08/20 24 05/08/2024 COMP. METAB OLIC PANEL (14) globulin, total 2.2 g/dL 1.5-4. 5 Not Available [facility] ([facility]) [address] [facility] [place], [address], 05/09/2024 06:09:08 08/20/20 24 05/08/2024 COMP. METAB OLIC PANEL (14) bilirubin, total 1.2 mg/dL 0.0-1. 2 normal Not Available [facility] ([facility]) [address] [facility] [place], [address], 05/09/2024 06:09:08 05/08/20 24 05/08/2024 COMP. METAB OLIC PANEL (14) alkaline phosphatase 146 IU/L 44-121 above high normal Not Available [facility] ([facility]) [address] [facility] [place], [address], 05/09/2024 06:09:08 05/08/20 24 05/08/2024 COMP. METAB OLIC PANEL (14) AST (SGOT) 23 IU/L 0-40 normal Not Available [facility] ([facility]) [address] [facility] [place], [address], 05/09/2024 06:09:08 05/08/20 24 05/08/2024 COMP. METAB OLIC PANEL (14) ALT (SGPT) 22 IU/L 0-32 normal Not Available [facility] ([facility]) [address] [place], [address], 05/09/2024 06:09:08 05/08/20 24 05/08/2024 LIPID PANEL cholesterol, total 175 mg/dL 100-19 9 normal Not Available [facility] ([facility]) [address] [place], [address], 05/09/2024 06:09:09 05/08/20 24 05/08/2024 LIPID PANEL triglyceride s 129 mg/dL 0-149 normal Not Available [facility] ([facility]) [address] [place], [address], 05/09/2024 06:09:09 05/08/20 24 05/08/2024 LIPID PANEL HDL cholesterol 48 mg/dL >39 normal Not Available [facility] ([facility]) [address] [facility] [place], [address], 05/09/2024 06:09:09 05/08/20 24 05/08/2024 LIPID PANEL VLDL cholesterol mira 23 mg/dL 5-40 Not Available [facility] ([facility]) [address] [facility] [place], [address], 05/09/2024 06:09:09 05/08/20 24 05/08/2024 LIPID PANEL LDL chol calc ([facility]) 104 mg/dL 0-99 above high normal Not Available [facility] ([facility]) [address] [facility] [place], [address], 05/09/2024 06:09:09 05/08/20 24 05/08/2024 LIPID PANEL LDL calc comment: ILLUSTRATOR SET Not Available [facility] ([facility]) [address] [facility] [place], [address], 05/09/2024 06:09:09 05/08/20 24 05/08/2024 TSH RFX ON ABNOR MAL TO FREE T4 TSH 0.620 uIU/m L 0.450- 4.500 normal Not Available [facility] ([facility]) [address] [facility] [place], [address], 05/09/2024 06:09:09 05/22/20 24 05/23/2024 UA WITH CULTU RE REFLE X specific gravity 1.020 1.005- 1.030 normal Not Available [facility] ([facility]) [address] [facility] [place], [address], 05/23/2024 12:06:14 05/22/20 24 05/23/2024 UA WITH CULTU RE REFLE X pH 5.5 5.0-7. 5 normal Not Available [facility] ([facility]) [address] [facility] [place], [address], 05/23/2024 12:06:14 05/22/20 24 05/23/2024 UA WITH CULTU RE REFLE X urine-color Yellow yellow Not Available [facility] ([facility]) [address] [facility], [place], [address], 05/23/2024 12:06:14 05/22/20 24 05/23/2024 UA WITH CULTU RE REFLE X appearance Clear clear Not Available [facility] ([facility]) [address] [facility], [place], [address], 05/23/2024 12:06:14 05/22/20 24 05/23/2024 UA WITH CULTU RE REFLE X WBC esterase Negati ve negati ve Not Available [facility] ([facility]) [address] [facility], [place], [address], 05/23/2024 12:06:14 05/22/20 24 05/23/2024 UA WITH CULTU RE REFLE X protein Negati ve negati ve/tra ce Not Available [facility] ([facility]) [address] [facility], [place], [address], 05/23/2024 12:06:14 05/22/20 24 05/23/2024 UA WITH CULTU RE REFLE X glucose Negati ve negati ve Not Available [facility] ([facility]) [address] [facility], [place], [address], 05/23/2024 12:06:14 05/22/20 24 05/23/2024 UA WITH CULTU RE REFLE X ketones Negati ve negati ve Not Available [facility] ([facility]) [address] [facility], [place], [address], 05/23/2024 12:06:14 05/22/20 24 05/23/2024 UA WITH CULTU RE REFLE X occult blood Negati ve negati ve Not Available [facility] ([facility]) [address] [facility], [place], [address], 05/23/2024 12:06:14 05/22/20 24 05/23/2024 UA WITH CULTU RE REFLE X bilirubin Negati ve negati ve Not Available [facility] ([facility]) [address] [facility], [place], [address], 05/23/2024 12:06:14 05/22/20 24 05/23/2024 UA WITH CULTU RE REFLE X urobilinogen ,semi-qn 0.2 mg/dL 0.2-1. 0 normal Not Available [facility] ([facility]) [address] [facility], [place], [address], 05/23/2024 12:06:14 05/22/20 24 05/23/2024 UA WITH CULTU RE REFLE X nitrite, urine Negati ve negati ve Not Available [facility] ([facility]) [address] [facility], [place], [address], 05/23/2024 12:06:14 05/22/20 24 05/23/2024 UA WITH CULTU RE REFLE X microscopic examination Commen t Micro scopi c not indic ated and not perfo rmed. Not Available [facility] ([facility]) [address] [facility], [place], [address], 05/23/2024 12:06:14 05/22/20 24 05/23/2024 UA WITH CULTU RE REFLE X urinalysis reflex Commen t This speci men will not refle x to a Urine Cultu re. Not Available [facility] ([facility]) [address] [facility], [place], [address], 05/23/2024 12:06:14 05/22/20 24 05/22/2024 urina lysis , dipst ick Leukocytes Negati ve Not Available In-Office Order Internal Use Only DO Not Attach Compendium DO Not Attach Compendium, Do Not Delete/merge, [id number] 05/22/2024 14:01:14 05/22/2005/22/2024 urina lysis , dipst ick Nitritie negati ve Not Available In-Office Order Internal Use Only DO Not Attach Compendium DO Not Attach Compendium, Do Not Delete/merge, [id number] 05/22/2024 14:01:14 05/22/20 24 05/22/2024 urina lysis , dipst ick Urobilinogen .2 Not Available In-Of fice Order Internal Use Only DO Not Attach Compendium DO Not Attach Compendium, Do Not Delete/merge, [id number] 05/22/2024 14:01:14 05/22/20 24 05/22/2024 urina lysis , dipst ick Protein Negati ve Not Available In-Office Order Internal Use Only DO Not Attach Compendium DO Not Attach Compendium, Do Not Delete/merge, [id number] 05/22/2024 14:01:14 05/22/20 24 05/22/2024 urina lysis , dipst ick pH 5.5 Not Available In-Office Order Internal Use Only DO Not Attach Compendium DO Not Attach Compendium, Do Not Delete/merge, [facility] 05/22/2024 14:01:14 05/22/20 24 05/22/2024 urina lysis , dipst ick Blood Negati ve Not Available In-Office Order Internal Use Only DO Not Attach Compendium DO Not Attach Compendium, Do Not Delete/merge, [facility] 05/22/2024 14:01:14 05/22/20 24 05/22/2024 urina lysis , dipst ick Specific [place] 1.025 Not Available In-Off ice Order Internal Use Only DO Not Attach Compendium DO Not Attach Compendium, Do Not Delete/merge, [facility] 05/22/2024 14:01:14 05/22/20 24 05/22/2024 urina lysis , dipst ick Ketone Negati ve Not Available In-Office Order Internal Use Only DO Not Attach Compendium DO Not Attach Compendium, Do Not Delete/merge, [facility] 05/22/2024 14:01:14 05/22/20 24 05/22/2024 urina lysis , dipst ick Bilirubin Negati ve Not Available In-Office Order Internal Use Only DO Not Attach Compendium DO Not Attach Compendium, Do Not Delete/merge, 05/22/2024 14:01:14 05/22/20 24 05/22/2024 urina lysis , dipst ick Glucose Negati ve Not Available In-Office Order Internal Use Only DO Not Attach Compendium DO Not Attach Compendium, Do Not Delete/merge, 05/22/2024 14:01:14 05/22/20 24 05/22/2024 urina lysis , dipst ick Appearance Clear Not Available In-Offi ce Order Internal Use Only DO Not Attach Compendium DO Not Attach Compendium, Do Not Delete/merge, 05/22/2024 14:01:14 05/22/20 24 05/22/2024 urina lysis , dipst ick Color Pale Yellow Not Available In-Office Order Internal Use Only DO Not Attach Compendium DO Not Attach Compendium, Do Not Delete/merge, 05/22/2024 14:01:14 12/06/1912/05/2024 hemog lobin A1C, finge rstic k A1C 5.5 % 4-6 normal Not Available In-Office Order Internal Use Only DO Not Attach Compendium DO Not Attach Compendium, Do Not Delete/merge, 12/05/2024 09:13:24 01/18/20 25 01/18/2025 CBC WITH DIFFE RENTI AL/PL ATELE T WBC 7.1 x10e3 /uL 3.4-10 .8 normal Not Available [facility] ([facility]) [address] [place], [address], 01/18/2025 16:08:02 01/18/20 25 01/18/2025 CBC WITH DIFFE RENTI AL/PL ATELE T RBC 4.03 x10e6 /uL 3.77-5 .28 normal Not Available [facility] ([facility]) [address] [facility], [place], [address], 01/18/2025 16:08:02 01/18/20 25 01/18/2025 CBC WITH DIFFE RENTI AL/PL ATELE T hemoglobin 12.9 g/dL 11.1-1 5.9 normal Not Available [facility] ([facility]) [address] [place], [address], 01/18/2025 16:08:02 01/18/20 25 01/18/2025 CBC WITH DIFFE RENTI AL/PL ATELE T hematocrit 38.8 % 34.0-4 6.6 normal Not Available [facility] ([facility]) [address] [place], [address], 01/18/2025 16:08:02 01/18/20 25 01/18/2025 CBC WITH DIFFE RENTI AL/PL ATELE T MCV 96 fL 79-97 normal Not Available [facility] ([facility]) [address] [facility], [place], [address], 01/18/2025 16:08:02 01/18/20 25 01/18/2025 CBC WITH DIFFE RENTI AL/PL ATELE T MCH 32.0 pg 26.6-3 3.0 normal Not Available [facility] ([facility]) [address] [place], [address], 01/18/2025 16:08:02 01/18/20 25 01/18/2025 CBC WITH DIFFE RENTI AL/PL ATELE T MCHC 33.2 g/dL 31.5-3 5.7 normal Not Available [facility] ([facility]) [address] [place], [address], 01/18/2025 16:08:02 01/18/20 25 01/18/2025 CBC WITH DIFFE RENTI AL/PL ATELE T RDW 12.7 % 11.7-1 5.4 Not Available [facility] ([facility]) [address] [place], [address], 01/18/2025 16:08:02 01/18/20 25 01/18/2025 CBC WITH DIFFE RENTI AL/PL ATELE T platelets 188 x10e3 /uL 150-45 0 normal Not Available [facility] ([facility]) [address] [facility], [place], [address], 01/18/2025 16:08:02 01/18/20 25 01/18/2025 CBC WITH DIFFE RENTI AL/PL ATELE T neutrophils 57 % not estab. normal Not Available [facility] ([facility]) [address] [facility], [place], [address], 01/18/2025 16:08:02 01/18/20 25 01/18/2025 CBC WITH DIFFE RENTI AL/PL ATELE T lymphs 27 % not estab. normal Not Available [facility] ([facility]) [address] [facility], [place], [address], 01/18/2025 16:08:02 01/18/20 25 01/18/2025 CBC WITH DIFFE RENTI AL/PL ATELE T monocytes 13 % not estab. normal Not Available [facility] ([facility]) [address] [facility], [place], [address], 01/18/2025 16:08:02 01/18/20 25 01/18/2025 CBC WITH DIFFE RENTI AL/PL ATELE T eos 2 % not estab. normal Not Available [facility] ([facility]) [address] [facility], [place], [address], 01/18/2025 16:08:02 01/18/20 25 01/18/2025 CBC WITH DIFFE RENTI AL/PL ATELE T basos 1 % not estab. normal Not Available [facility] ([facility]) [address] [facility], [place], [address], 01/18/2025 16:08:02 01/18/20 25 01/18/2025 CBC WITH DIFFE RENTI AL/PL ATELE T immature cells ILLUSTRATOR SET Not Available [facility] ([facility]) [address] [place], [address], 01/18/2025 16:08:02 01/18/20 25 01/18/2025 CBC WITH DIFFE RENTI AL/PL ATELE T neutrophils (absolute) 4.1 x10e3 /uL 1.4-7. 0 normal Not Available [facility] ([facility]) [address] [facility], [place], [address], 01/18/2025 16:08:02 01/18/20 25 01/18/2025 CBC WITH DIFFE RENTI AL/PL ATELE T lymphs (absolute) 1.9 x10e3 /uL 0.7-3. 1 normal Not Available [facility] ([facility]) [address] [place], [address], 01/18/2025 16:08:02 01/18/20 25 01/18/2025 CBC WITH DIFFE RENTI AL/PL ATELE T monocytes(ab solute) 0.9 x10e3 /uL 0.1-0. 9 normal Not Available [facility] ([facility]) [address] [place], [address], 01/18/2025 16:08:02 01/18/20 25 01/18/2025 CBC WITH DIFFE RENTI AL/PL ATELE T eos (absolute) 0.1 x10e3 /uL 0.0-0. 4 normal Not Available [facility] ([facility]) [address] [place], [address], 01/18/2025 16:08:02 01/18/20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 201302/07/2017 IMPRESSI ON: CHRONIC W/O ETIOLOGY IDENTIFI ED AND W/U HAS REMAINED UNINFORM ATIVE. SEEN BY UROLOGY AND I AGREE WITH THE REFERRAL TO RAMP ATTENDANT PAIN SPECIALI . Sherry patel [facility] 7 09:21:06 Dizzines s and giddines s [id number] Completed 201302/07/2017 RECORDED 03/05/20 14 10:57AM BY JASBIR HANDY, YOAV ON/ELKE patel [facility] 7 09:21:16 Tobacco user [id number] Completed 201301/22/2015 quit 2010 Artemio Angelo MD [address], [place], [address] , [facility] 6 13:26:12 Pure hypercho lesterol emia [id number] Completed 201302/07/2017 On meds and followed here Artemio Angelo MD [address] [facility] [address], [place], [address] , [facility] 7 10:23:19 Hypothyr oidism 48039378 Active 2013 On meds and followed here Shawna patel [facility] 0 13:53:03 Single major depressi ve episode Active 2013 After the stroke; now fine Shawna patel [facility] 0 13:53:03 Cough [id number] Completed 201304/25/2014 IMPRESSI ON: PT CALLED AND NOT BETTER ON Z-PREET. ALMOST A MONTH NOW OF COUGHING .; RECORDED 03/05/20 14 10:13AM BY LYNETTE MORRISON MA, ANNOTATI ON/ADDEN DUM Sherry May MA [facility] 7 09:23:06 Dysuria [id number] Completed 201304/25/2014 IMPRESSI ON: IMPROVED . WILL TREAT ONLY IF CULTURE RETURNS POSITIVE ; RECORDED 03/05/20 14 10:13AM BY LYNETTE MORRISON MA, ANNOTATI ON/ADDEN DUM Artemio Angelo MD [address] [facility] [address], [place], [address] , [facility] 6 13:26:12 Knee pain Completed 201304/25/2014 IMPRESSI ON: PT CALLED. SHE IS GETTING CXR. SHE WANTED TO ALSO GET KNEE X-RAY. SHE STATES THAT SHE HAS MENTIONE D THE KNEE PAIN TO OUR OFFICE BEFORE; RECORDED 03/05/20 14 10:13AM BY LYNETTE MORRISON MA, YOAV ON/ELKE Angelo MD [address] [facility] [address], [place], [address] , [facility] 6 13:26:12 Knee pain Completed 201302/07/2017 IMPRESSI ON: LIKELY MENISCAL TEAR. WILL HAVE HER SEE ORTHO; RECORDED 03/05/20 14 12:43PM BY JASBIR HANDY, OFFICE VISIT Sherry patel, [facility] 7 09:22:52 Cough [id number] Completed 201304/26/2014 IMPRESSI ON: PT CALLED AND NOT BETTER ON Z-PREET. ALMOST A MONTH NOW OF COUGHING .; RECORDED 03/05/20 14 10:13AM BY LYNETTE MORRISON MA, ZENOBIAATI ON/ADDEN LUIS ALFREDO patel, [facility] 7 09:23:06 Dysuria [id number] Completed 201304/26/2014 IMPRESSI ON: IMPROVED . WILL TREAT ONLY IF CULTURE RETURNS POSITIVE ; RECORDED 03/05/20 14 10:13AM BY LYNETTE MORRISON MA, YOAV ON/ELKE Angelo MD [address] [facility] [address], [place], [address] , [facility] 6 13:26:12 Knee pain Completed 201304/26/2014 IMPRESSI ON: PT CALLED. SHE IS GETTING CXR. SHE WANTED TO ALSO GET KNEE X-RAY. SHE STATES THAT SHE HAS MENTIONE D THE KNEE PAIN TO OUR OFFICE BEFORE; RECORDED 03/05/20 14 10:13AM BY LYNETTE MORRISON MA, ANNOTATI ON/ELKE Angelo MD [address] [facility] [address], [place], [address] , [facility] 6 13:26:12 Pain in right knee Completed 201602/07/2017 Followed at [facility]; possible osteonec rosis Sherry patel, [facility] 7 09:22:55 Hyperlip idemia 44675128 Active 2016 Shawnakike patel, [facility] 0 13:53:03 Hypergly cemia 99050134 Active 2016 Shawna Gonzalez null, [facility] 0 13:53:02 Tear of medial meniscus of knee 748721116 Active [address] Vernon. Had artrosco pic surgery done in fall w/o much help with her pain Shawnakike patel, [facility] 0 13:53:02 Palpitat ions 34926378 Active [address] Andrea ; probably PAC's & PVC's Shawnakike patel, [facility] 0 13:53:02 Bilatera l knee pain Active 2016 Seen at [facility]. Patellof emoral syndrome . MRI on left showing medial meniscus tear Shawna Gonzalez null, [facility] 0 13:53:02 Arthriti s of left knee [id number] 91550 Active 2017 Shawnakike patel, [facility] 0 13:49:26 Anxiety state 086069345 Active 2017 Shawna patel, [facility] 0 13:53:02 Idiopath ic trigemin al neuropat hy 134724807 Active [address] [facility] and neuro feels that this is secondar y to migraine s w/o MESSER. Shawna Gonzalez null, [facility] 0 13:53:02 Arthriti s of right knee 22753571879 93473 Active 2018 Shawnakike Gonzalez null, [facility] 0 13:49:26 Gastroes ophageal reflux disease 270529868 Active 2019 Shawna Gonzalez null, [facility] 0 13:53:02 Disorder of salivary gland 98804824 Active 2020 Seen by ENT; sialoade nopathy. Observe. Artemio Angelo MD [address] [facility] [address], [place], [address] , [facility] 1 07:57:55 Chronic kidney disease stage 2 671793810 Active 2020 Artemio Angelo MD [address] [facility] [address], [place], [address] , [facility] 1 21:56:49 History of SARS-CoV -2 [id number] 5968612 Active 2021 Leda Thurston RN [facility], [facility] 2 13:33:21 Coronary arterios clerosis 94178344 Active 2021 Followed by cardiolo gy Artemio Angelo MD [address] [facility] [address], [place], [address] , [facility] 2 08:03:25 Sore nipple 599427943 Active 2022 bilatera l seen by breast speciali benign finding Artemio Angelo MD [address] [facility] [address], [place], [address] , [facility] 3 15:43:30 Generali zed anxiety disorder 38163102 Active 2022 [facility] [address] [facility] [address], [place], [address] , [facility] 3 09:28:26 Moderate recurren t major depressi on 71448188 Active 2022 CORTES Dumont [address] [facility] [address], [place], [address] , [facility] 3 09:28:57 Fatigue 30622911 Active 2022 CORTES Dumont [address] [facility] [address], [place], [address] , [facility] 3 09:36:21 Tight chest 09406120 Active 2022 Asha Vinson, [facility] [address] [facility] [address], [place], [address] , [facility] 3 10:27:20 Insomnia 666840733 Active 2023 Asha Vinson, [facility] [address] [facility] [address], [place], [address] , [facility] 4 10:23:06 Burning mouth syndrome 056525162 Active 2023 Asha Vinson, [facility] [address] [facility] [address], [place], [address] , [facility] 4 10:31:16 Itching of skin 280243545 Active 2023 Asha Vinson, [facility] [address] [facility] [address], [place], [address] , [facility] 4 10:32:48 Impaired fasting glycemia 916300619 Active 2023 Asha Vinson, [facility] [address] [facility] [address], [place], [address] , [facility] 4 10:34:59 Vitamin D deficien cy 76573790 Active 2023 Asha Vinson, [facility] [address] [facility] [address], [place], [address] , [facility] 4 10:35:25 Anemia 032824135 Active 2023 RECORDED 12/21/19 13 8:46AM BY FRANCIA RODRIGUEZ MA, ANNOTATI ON/ADDEN LUIS ALFREDO Vinson, [facility] [address] [facility] [address], [place], [address] , [facility] 4 10:35:46 Osteopen ia 971138104 Active 2023 Artemio Angelo MD [address], [place], [address] , [facility] 4 08:43:59 Mitral valve regurgit ation 94941081 Active 2024 Followed by cardiolo gy and getting an ECHO every 2-3 years. Last ECHO September 2022 Artemio Angelo MD [address], [place], [address] , [facility] 5 08:53:43 Migraine 82903542 Active 2024 Artemio Angelo MD [address], [place], [address] , [facility] 5 08:54:59 Problem Notes None recorded. Procedures Surgical History Date Name Laterality Status Provider Name and Address Organization Details Recorded Time 01/24/20 25 Corrj halux rigdus w/implt completed Maricruz Rascon [facility] 01/24/2025 10:00:29 08/20/[address] of lungs completed Shanna Clement [facility] 08/21/2024 09:07:05 02/14/20 24 Echo transthoracic completed Shanna Clement [facility] 03/02/2024 13:59:07 12/22/19 24 Most Recent Mammogram completed Aundrea Taylor MA [facility] 05/08/2024 09:21:09 12/21/19 23 Mammogram Screening completed Shani Landa [facility] 12/20/2022 15:10:46 02/27/20 21 Six-Item Cognitive Test completed Kyra Rob MA [facility] 02/26/2021 11:45:39 09/16/20 20 Colonoscopy completed Shanna Clement [facility] 10/28/2023 09:31:04 01/27/20 19 Tte w/doppler complete completed Ely Pattie [facility] 01/30/2019 09:14:22 03/15/20 17 Arthroscopic Surgery completed Sue Villalobosellano [facility] 11/10/2017 11:45:12 07/14/20 16 Date of Last Colonoscopy completed German mlahotra MA [facility] 10/27/2023 09:52:30 01/18/20 03 Total hysterectomy completed Helen Coats CPPM [facility] 01/29/2016 14:30:36 Imaging Results None recorded. Procedure Notes None recorded. Medical Equipment None Reported. Allergies Allergen ID Allergen Name Allergen Category Reaction Reaction Severity Criticality Documentation Date Start Date Code Code System Note Provider Name and Address Organization Details Recorded Time 26940 meloxicam medicatio n headache Not available Not available 05/08/2024 00744 RxNorm BLAKE Worthington [facility] 09:08:48 Medications Name Sig Start Date Stop Date Status Note LastModified by Organization Details LastModified Time verapamil ER (SR) 120 mg tablet,ex tended release 02/14 completed Not Available Not Available Not Available cyclobenz aprine 10 mg tablet 07/22 completed Not Available Not Available Not Available amoxicill in 500 mg capsule TAKE 1 CAPSULE BY MOUTH THREE TIMES A DAY 12/05 completed Not Available Not Available Not Available aspirin 300 mg rectal supposito ry Insert 300 mg every 6 hours by rectal route. 10/21 completed Not Available Not Available Not Available atorvasta tin 80 mg tablet TAKE 1 TABLET BY MOUTH EVERY DAY 2024 active Not Available Not Available Not Avai lable Carafate 100 mg/mL oral suspensio n TAKE 10 ML BY MOUTH 4 TIMES A DAY,X10 DAYS. BEFORE MEALS AND AT BEDTIME ON AN EMPTY STOMACH 12/16 completed Not Available Not Available Not Available trazodone 50 mg tablet TAKE 1 TABLET BY MOUTH EVERY DAY DIRECTED active Not Available Not Available No t Available cetirizin e 10 mg tablet TAKE 1 TABLET BY MOUTH DAILY 09/01 completed Not Available Not Available Not Available azithromy aisha 250 mg tablet active Not Available Not Available No t Available nitroglyc kesha 0.3 mg sublingua l tablet 10/21 completed Not Available Not Available Not Available hydrocodo ne 5 mg-acetam inophen 325 mg tablet 06/13 completed Not Available Not Available Not Available Cheratuss in DAC 30 mg-10 mg-100 mg/5 mL oral syrup Take 5 mL every 6 hours by oral route for 10 days. 2014 active Not Available Not Available Not Avai lable meloxicam 15 mg tablet TAKE 1 TABLET BY MOUTH EVERY DAY FOR 30 DAYS 05/08 completed Not Available Not Available Not Available metronida zole 0.75 % (37.5 mg/5 gram) vaginal gel INSERT 1 APPLICAT ORFUL EVERY DAY BY VAGINAL ROUTE AT BEDTIME FOR 5 DAYS. 01/02 completed Not Available Not Available Not Available ondansetr on HCl 4 mg tablet 07/08 completed Not Available Not Available Not Available prednison e 20 mg tablet 07/22 completed Not Available Not Available Not Available isosorbid e mononitra te ER 30 mg tablet,ex tended release 24 hr active Not Available Not Available Not Available topiramat e 25 mg tablet TAKE 1 TABLET BY MOUTH EVERY DAY FOR 30 DAYS 12/05 completed Not Available Not Available Not Available ciproflox acin 250 mg tablet BID for 5 02/26 completed Not Available Not Available Not Available sulfameth oxazole 800 mg-trimet hoprim 160 mg tablet 05/17 completed Not Available Not Available Not Available peg-elect rolyte solution 420 gram oral solution 01/24 completed Not Available Not Available Not Available aspirin 81 mg tablet,de layed release Take 1 tablet every day by oral route. active on hold Not Available Not Available No t Available levothyro xine 75 mcg tablet TAKE 1 TABLET BY MOUTH EVERY DAY active Not Available Not Available No t Available Macrobid 100 mg capsule Take 1 capsule every 12 hours by oral route for 7 days, for UTI. 05/23 completed urine was negative . Not Available Not Available Not Available oxycodone -acetamin ophen 5 mg-325 mg tablet 06/13 completed Not Available Not Available Not Available citalopra m 20 mg tablet DAILY 01/18 completed RECORDED 01/19/20 13 1:33PM BY YOAV EDMOND/ELKE DUM; Not Available Not Available Not Available famotidin e 20 mg tablet TAKE 1 TABLET BY MOUTH EVERY DAY 12/16 completed Not Available Not Available Not Available amitripty line 25 mg tablet TAKE 1 TABLET BY MOUTH EVERY DAY AT BEDTIME FOR 30 DAYS 12/05 completed Not Available Not Available Not Available lorazepam 0.5 mg tablet TAKE 1 TABLET BY MOUTH 2 HOURS PRIOR TO DENTAL APPOINTM ENT 04/14 completed Not Available Not Available Not Available triamcino lone acetonide 0.1 % dental paste APPLY 1/4 INCH TO GUMS TWICE A DAY NEEDED FOR 7-14 DAYS DIRECTED 03/21 completed Not Available Not Available Not Available amitripty line 10 mg tablet TAKE 1 TABLET BY MOUTH EVERY DAY AT BEDTIME FOR 90 DAYS active Not Available Not Available No t Available levothyro xine 50 mcg tablet TAKE 1 TABLET BY MOUTH DAILY 03/29 completed Not Available Not Available Not Available cephalexi n 500 mg capsule active Not Available Not Available Not Available Antivert 25 mg tablet TWO TIMES DAILY, NEEDED FOR DIZZINES S 11/29 completed RECORDED 11/30/19 12 11:29AM BY YOAV EDMOND/ELKE DUM;CAUT ION DRIVING Not Available Not Available Not Available betametha sone dipropion ate 0.05 % topical cream APPLY A THIN LAYER TO THE AFFECTED AREA(S) UPPER BACK BY TOPICAL ROUTE ONCE DAILY 03/21 completed Not Available Not Available Not Available docusate sodium 100 mg capsule TAKE 2 CAPSULES BY MOUTH EVERY DAY AT BEDTIME 12/16 completed Not Available Not Available Not Available omeprazol e 20 mg capsule,d elayed release Take 1 capsule every day by oral route as needed for 90 days. 2023 active NEEDED Not Available Not Available Not Available diclofena c sodium 75 mg tablet,de layed release TAKE 1 TABLET BY MOUTH TWICE A DAY FOR 15 DAYS 09/01 completed Not Available Not Available Not Available bisacodyl 5 mg tablet,de layed release TAKE 4 TABLETS BY MOUTH AT 6PM ON THE EVENING BEFORE YOUR PROCEDUR E 12/16 completed Not Available Not Available Not Available gabapenti n 100 mg capsule 01/24 completed Not Available Not Available Not Available lorazepam 1 mg tablet TAKE 1 TABLET BY MOUTH 1-2 HOURS BEFORE MRI 05/08 completed Not Available Not Available Not Available Cheratuss in AC 10 mg-100 mg/5 mL oral liquid Take 10 mL 4 times a day by oral route for 5 days. active Not Available Not Available No t Available methylpre dnisolone 4 mg tablets in a dose pack TAKE 6 TABLETS ON DAY 1 DIRECTED ON PACKAGE AND DECREASE BY 1 TAB EACH DAY FOR A TOTAL OF 6 DAYS 10/19 completed Not Available Not Available Not Available albuterol sulfate HFA 90 mcg/actua tion aerosol inhaler INHALE 2 PUFFS EVERY 4-6 HOURS BY INHALATI ON ROUTE NEEDED 12/30 completed Not Available Not Available Not Available fluticaso ne propionat e 50 mcg/actua tion nasal spray,kristian pension SPRAY 1 SPRAY NEEDED BY INTRANAS AL ROUTE 12/30 completed Not Available Not Available Not Available naproxen 500 mg tablet Take 1 tablet twice a day by oral route for 15 days. 06/13 completed Not Available Not Available Not Available diazepam 5 mg tablet 07/14 completed Not Available Not Available Not Available amoxicill in 875 mg-potass ium clavulana te 125 mg tablet TAKE 1 TABLET BY MOUTH EVERY 12 HOURS FOR 10 DAYS 05/31 completed Not Available Not Available Not Available Mapap Arthritis Pain 650 mg tablet,ex tended release Take 1 tablet every 8 hours by oral route for 10 days. 12/16 completed Not Available Not Available Not Available escitalop jordan 10 mg tablet TAKE 1 TABLET BY MOUTH EVERY DAY active Not Available Not Available No t Available Vitamin D3 25 mcg (1,000 unit) capsule Take 1 capsule every day by oral route. active Not Available Not Available No t Available cyclobenz aprine 5 mg tablet 07/22 completed Not Available Not Available Not Available Readi-Cat 2 2.1 % (w/v), 2.0 % (w/w) oral suspensio n Take 450 mL twice a day by oral route as directed for 1 day. 10/21 completed Not Available Not Available Not Available chlorhexi dine gluconate 0.12 % mouthwash RINSE WITH 1/2OZ TWICE A DAY-SWIS H AND SPIT 12/05 completed Not Available Not Available Not Available Vicodin EVERY 6 HOURS PRN PAIN 09/17 completed RECORDED 09/30/19 12 1:16PM BY AUNDREA JESUS PA-C, MEDICATI ON AUTO-NADIA CTIVATIO N; Not Available Not Available Not Available Aspirin EC 81mg 1 po QD 02/09 completed Not Available Not Available Not Available multivita min DAILY active RECORDED 01/22/20 14 2:08PM BY ARTEMIO NEW MD, ANNOTATI ON/ADDEN DUM; Not Available Not Available Not Available Triamcino lone Acetate TWO TIMES DAILY 01/15 completed RECORDED 01/16/20 11 4:20PM BY ARTEMIO NEW MD, MEDICATI ON AUTO-NADIA CTIVATIO N; Not Available Not Available Not Available Meclizine Hcl Chewable EVERY 8 HRS NEEDED FOR DIZZINES S 2011 active RECORDED 11/22/19 12 12:11PM BY JASBIR HANDY, REVIEW; Not Available Not Available Not Available cyclobenz aprine 7.5 mg tablet Take 1 tablet every day by oral route at bedtime for 7 days. 07/22 completed Not Available Not Available Not Available Symbicort 160 mcg-4.5 mcg/actua tion HFA aerosol inhaler INHALE 2 PUFFS TWICE A DAY FOR 90 DAYS 08/27 completed not helping Not Available Not Available Not Available cholecalc iferol (vitamin D3) 1,250 mcg (50,000 unit) capsule 1 CAPSULE BY MOUTH EVERY WEEK, WITH FOOD, ONCE COMPLETE TAKE 1000 IU /DAY 05/04 completed Not Available Not Available Not Available diclofena c 1 % topical gel 10/17 completed Not Available Not Available Not Available Purelax 17 gram oral powder packet TAKE 1 PACKET DAILY BY MOUTH 12/16 completed Not Available Not Available Not Available Flucelvax Quad [id number] (PF) 60 mcg (15 mcg x 4)/0.5 mL IM syringe 08/08 completed Not Available Not Available Not Available vitamin D3 1,250 mcg (50,000 unit)-vit kay K2 200 mcg capsule Take 1 capsule every week by oral route. 10/27 completed Not Available Not Available Not Available Vitals Date Recorded Body height Body mass index (BMI) Body weight Heart rate Oxygen saturation Oxygen saturation in Arterial blood by Pulse oximetry Body temperature Systolic And Diastolic Provider Name and Address Organization Details Last Updated DateTime 5 153.67 cm 33.4 kg/m2 81674.7 7 g 80 /min 97 % 97 % 97.2 [degF] 107/71 mm[Hg] Peyton Kidd LPN [facility] 5 09:01:30 Date Recorded Body height Body mass index (BMI) Body weight Heart rate Oxygen saturation Oxygen saturation in Arterial blood by Pulse oximetry Body temperature Systolic And Diastolic Provider Name and Address Organization Details Last Updated DateTime 5 153.67 cm 33.6 kg/m2 26008.6 6 g 80 /min 95 % 95 % 98 [degF] 102/68 mm[Hg] [facility] 14:[facility]07 Date Recorded Body height Body mass index (BMI) Body weight Heart rate Oxygen saturation Oxygen saturation in Arterial blood by Pulse oximetry Body temperature Systolic And Diastolic Provider Name and Address Organization Details Last Updated DateTime 4 153.67 cm 32.9 kg/m2 37281 g 77 /min 97 % 97 % 97.7 [degF] 109/73 mm[Hg] Aundrea Taylor [facility] 4 09:06:59 Date Recorded Body height Body mass index (BMI) Body weight Heart rate Oxygen saturation Oxygen saturation in Arterial blood by Pulse oximetry Body temperature Systolic And Diastolic Provider Name and Address Organization Details Last Updated DateTime 4 153.67 cm 32.8 kg/m2 41718.3 g 82 /min 99 % 99 % 97.6 [degF] 115/76 mm[Hg] Bailee Madrid MA [facility] 4 14:00:15 Date Recorded Body height Body mass index (BMI) Body weight Heart rate Oxygen saturation Oxygen saturation in Arterial blood by Pulse oximetry Body temperature Systolic And Diastolic Provider Name and Address Organization Details Last Updated DateTime 4 153.67 cm 32.7 kg/m2 09469.7 g 61 /min 98 % 98 % 97.8 [degF] 93/62 mm[Hg] Tom mejia MA [facility] 4 09:36:47 Social History Question Answer Notes LastModified by Organizat ion Details LastModified Time Tobacco Smoking Status Former Smoker quit 2010 [place] [facility] 01/17/2025 19:57:07 Do You Have An Advance Directive? Yes 01/29/2016 [id number] Information not available 07/22/2020 Is Blood Transfusion Acceptable In An Emergency? Yes [id number] Information not available 07/22/2020 What Is Your Level Of Caffeine Consumption? Occasional 1 Ice Coffee Information not available 05/08/2024 How Much Tobacco Do You Chew? None [id number] Information not available 07/22/2020 What Type Of Diet Are You Following? REGULAR [id number] Information not available 07/22/2020 When Did You Quit Smoking? 11-15yearssin [email or web address] te Information not available 01/17/2025 Live Alone Or With Others? With Others Amd Patient's Mom Information not available 05/08/2024 Do You Take Precautions To Prevent Distracted Driving? Yes Information not available 01/29/2016 How Often Do You Need To Have Someone Help You When You Read Instructions, Pamphlets, Or Other Written Material From Your Doctor Or Pharmacy? Never [email or web address] Information not available 01/29/2016 Have You Served In The ? No len Information not available 02/07/2017 Have You Or Anyone In Your Household Had Any Of The Following Symptoms In The Last 14 Days: Sore Throat, Cough, Chills, Body Aches For Unknown Reasons, Shortness Of Breath For Unknown Reasons, Loss Of Smell, Loss Of Taste, Fever At Or Greater Than 100 Degrees Fahrenheit? Yes Sinus Infection [email or web address] Information not available 06/02/2021 Are You Or Anyone In Your Household A Health Care Provider Or Emergency Responder? No [email or web address] Information not available 10/21/2020 To The Best Of Your Knowledge Have You Been In Close Proximity To Any Individual Who Tested Positive For COVID-19? No [email or web address] Information not available 10/21/2020 Have You Recently Traveled To A COVID-19 High Risk Area Or Gathering In The Last 10 Days? No [email or web address] Information not available 10/21/2020 What Was The Date Of Your Most Recent Tobacco Screening? 01/17/2025 Information not available 01/17/2025 How Many Children Do You Have? 2 1 Daughter And 1 Son 2 Gc She Is Estranged From Both Her Children. This Is A Source Of Angst For Her. Information not available 05/09/2024 What Is Your Current Pack Years? [email or web address] Information not available 01/17/2025 Do You Use Protection During Sex? No [id number] Information not available 07/22/2020 Seat Belts Used Routinely Yes Information not available 01/29/2016 Are You Sexually Active? No Information not available 04/20/2022 Smoke Alarm In Home Yes Information not available 01/29/2016 At What Age Did You Start Smoking Tobacco? 17 Information not available 01/17/2025 Are You Passively Exposed To Smoke? No Information not available 01/29/2016 How Much Tobacco Do You Smoke? 0.5 PPD Information not available 01/17/2025 Do You Use Sunscreen Routinely? No [id number] Information not available 07/22/2020 How Many Years Have You Smoked Tobacco? 39 Information not available 01/17/2025 Sex: Unknown Functional Status Question Answer Note LastModified by Organizat ion Details LastModified Time Do you use any illicit or recreational drugs? No [email or web address] Information not available 04/20/2022 Do you or have you ever used any other forms of tobacco or nicotine? No Information not available 05/26/2021 What is your level of alcohol consumption? Occasional [id number] Information not available 07/22/2020 Do you or have you ever used smokeless tobacco? Former smokeless tobacco user [email or web address] Information not available 10/21/2020 Are you currently employed? No retired 2014 Information not available 04/20/2022 Are you able to walk? [email or web address] Information not available 05/26/2021 Are you able to care for yourself? 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 Never used electronic cigarettes [id number] Information not available 07/22/2020 What is your exercise level? None Information not available 05/08/2024 Mental Status None recorded. Family History Relationship Description Onset Age of this Age Resolved Age Notes LastModified by Organization Details LastModified Time Mother Diabetes mellitus [email or web address] Not available 08/2016 12:53:56 Mother Hyperlipidem ia [email or web address] Not available 08/2016 12:53:56 Mother Hypertensive disorder [email or web address] Not available 08/2016 12:53:56 Mother Hypothyroidi sm [email or web address] Not available 08/2016 12:53:56 Father Cerebrovascu lar accident 87 in 2013 [email or web address] Not available 01/29/2016 12:53:56 Father Myocardial infarction 87 [email or web address] Not available 14:24:00 Father Bilateral deafness 87 [email or web address] Not available 04/19 14:24:09 Medical History No medical history recorded. Gynecological History Statement/Question Response Date of Last Colonoscopy 07/14/2016 Menses Monthly N Date of Last Pap Smear Sexual Problems? N Current Control Method Hysterectom y Most Recent Mammogram 12/22/2023 LMP Unknown Desired Control Method Hysterectom y Obstetrics History GPAL:G 0 P 0 0 0 0 Immunizations Vaccine Type Date Status Note Provider Name and Address Organization Details Recorded Time Influenza, split virus, quadrivalent, preservative 018 completed Not Available [facility] 10/27/2023 09:50:42 COVID-19, mRNA, LNP-S, PF, 30 mcg/0.3 mL dose 021 completed Jin Stanley MA null, [facility] 04/14/2022 14:50:15 COVID-19, mRNA, LNP-S, PF, 30 mcg/0.3 mL dose 021 completed Jin Stanley MA null, [facility] 04/14/2022 14:50:15 Influenza, MDCK, quadrivalent, PF 018 completed Jin Stanley MA null, [facility] 04/14/2022 14:50:15 COVID-19, mRNA, LNP-S, PF, 30 mcg/0.3 mL dose 021 completed Jailyn Gonzalez MA null, [facility] 04/20/2022 14:05:19 COVID-19, mRNA, LNP-S, bivalent, PF, 30 mcg/0.3 mL dose 022 completed [facility]/30/[facility]22 09:45:52 Influenza, split virus, quadrivalent, PF 017 completed Not Available [facility] 10/06/2019 02:22:13 Tdap 010 completed Shawna Gonzalez [facility] 02/26/2020 13:52:58 Tdap 019 completed Not Available [facility] 10/06/2019 02:21:49 Influenza, split virus, quadrivalent, PF 019 completed Not Available [facility] 10/06/2019 02:22:10 Influenza, split virus, quadrivalent, PF 020 cancelled patient objection Santi Hanson MD [address], [address], [facility] 07/08/2020 16:28:32 Pneumococcal conjugate PCV20, polysaccharide [id number] conjugate, adjuvant, PF 022 completed Artemio Angelo MD [address], [address], [facility] [place] 04/21/2022 09:22:11 Past Encounters Encounter ID Performer Location Encounter Start Date Encounter Closed Date Diagnosis/Indication Diagnosis SNOMED-CT Code Diagnosis ICD10 Code Diagnosis Note [id number] [facility] [address] [facility] [address] [place] [address] 12/16/2010 00:00:00 [id number] autoEComm erce [address] [facility] [place] [address] 03/08/2011 00:00:00 [id number] auto[facility]Comm erce [address] [facility],[address] [place] [address] 04/20/2011 00:00:00 [id number] autoEComm erce [address] [facility],[address] [place] [address] 07/08/2011 00:00:00 [id number] auto[facility]Comm erce [address] [facility],[address] [place] [address] 09/08/2011 00:00:00 [id number] auto[facility]Comm erce [address] [facility],[address] [place] [address] 11/22/2011 00:00:00 [id number] autoEComm erce [address] [facility],[address] [place] [address] 11/30/2011 00:00:00 [id number] autoEComm erce [address] [facility] [place] [address] 12/22/2011 00:00:00 [id number] auto[facility]Comm erce [address] [facility] [place] [address] 01/05/2012 00:00:00 [id number] auto[facility]Comm erce [address] [facility] [place] [address] 06/20/2012 00:00:00 [id number] autoEComm erce [address] [facility],[address] [place] [address] 12/20/2012 00:00:00 [id number] autoEComm erce [address] [facility] [place], [place] [address] 01/18/2013 00:00:00 [id number] autoEComm erce [address] [facility],[address] [place], [place] [address] 02/16/2013 00:00:00 [id number] autoEComm erce [address] [facility] [place], [place] [address] 04/03/2013 00:00:00 [id number] autoEComm erce [address] [facility] [place] [address] 07/24/2013 00:00:00 [id number] autoEComm erce [address] [facility] [place], [place] [address] 01/21/2014 00:00:00 [id number] autoEComm erce [address] [facility] [place] [address] 02/12/2014 00:00:00 [id number] [address] [place] [address],[address] [place], [place] [address] 03/05/2014 00:00:00 [id number] Artemio Angelo MD Main Office [address] [address] [place] [address] 11/28/2014 11:32:37 11/28/2014 12:10:30 Hypothyroidism 24608854 her fatigue and weight gain is probably related to winter eating and lack of exercise which has occurred in the past but we will check her thyroid level. 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 Painful. Used alligator clamp. Fatigue 49643555 fatigue probably from weight gain and lack of exercise but will check TSH and CBC [id number] Artemio Angelo MD Main Office [address] [facility] [address] [place], [place] [address] 01/22/2015 13:39:10 01/22/2015 14:27:51 Adult health examination 264505363 Dizziness and giddiness 400268778 this is a chronic problem and may be related to her hearing loss. Acute ill- defined cerebrovascular disease 843506842 stable since this occurred with no deficits. Screening for malignant neoplasm of colon 511077983 [id number] Artemio Angelo MD Main Office [address] [address] [place] [address] 05/20/2015 13:33:16 05/20/2015 14:10:43 Insect bite - wound 334831779 presumed infection from an insect bite. Instructed to complete the course of abx as prescribed and I gave her a new schedule for the medrol dose pack to start with 5 today and go down by 1 daily. [id number] Jazmin Ennis PA-C Main Office [address] [address] [place] [address] 08/25/2015 09:51:22 08/25/2015 10:53:00 Viral disease 83463195 B34.9 Viral infection with cough. Increase fluids, rest. Take OTC decongesta nts such as Sudafed PE 120 mg BID . Steam inhalation and facial compress. Nasal saline solution BID. Flonase spray 2 sprays qd. Cough 65962042 R05 [id number] Jazmin Ennis PA-C Main Office [address] [address] [place] [address] 01/02/2016 14:21:50 01/02/2016 15:00:30 Thoracic back sprain 160680536 S23.3XXA Start NSAIDs with food BID, Cyclobenza ev at HS for 1 week. 10 minutes of heat alternatin g with 10 min of cold pack . Reduce bending , twisting , repetitive reaching above head or lifting. F/u as needed. [id number] Artemio Angelo MD Main Office [address] [address] [place] [address] 01/29/2016 12:48:05 01/29/2016 13:52:00 Pure hypercholesterolemia 422739985 E78.0 Hypothyroidism 79113849 E03.9 Adult heal th examination 039721384 Z00.00 History of cerebrovascular accident without residual deficits 411240804 Z86.73 stable since this occurred with no deficits. [id number] Artemio Angelo MD Main Office [address] [address] [place] [address] 03/02/2016 09:08:54 03/02/2016 10:05:14 Thoracic back sprain 489043938 S23.3XXD persistent mid thoracic pain that started on the right but now involves the left. Meds are not helping. Will get an x-ray and refer to [facility] for possible PT. [id number] Jazmin Ennis PA-C Main Office [address] [facility] [address] [place] [address] 05/17/2016 15:02:42 05/17/2016 16:34:27 Abdominal pain 35752763 R10.9 H/o prolapsed bladder. Frequent urination and normal urine culture at [facility] 3 days ago. Refer to urogynecol dima for eval. Pelvic u/s to be set up. Review hospital labs upon receipt. Nausea 417614997 R11.0 Hyperbilirubinemia 68252 006 E80.6 Increased frequency of urination 881553759 R35.0 Likely due to prolapsed bladder. [id number] Jazmin Ennis PA-C Main Office [address] [address] [place] [address] 06/15/2016 08:59:47 06/15/2016 10:09:06 Pain in buttock 802407696 M79.1 ? sciatica or other neuralgia. XRAys of the LS spine. REferral to neurology for eval. Nausea 265031420 R11.0 GI referral for evaluation . Labs as ordered. Screening for malignant neoplasm of colon 349707209 Z12.11 [id number] Artemio Angelo MD Main Office [address] [facility] [address] [place] [address] 01/24/2017 10:35:20 01/24/2017 11:36:54 Palpitations 13322871 R00.2 Tight chest 50196207 R07 .89 [id number] Artemio Angelo MD Main Office [address] [address] [place] [address] 02/07/2017 09:24:46 02/07/2017 10:15:49 Adult health examination 224392241 Z00.00 She is UTD with colonoscop y and [facility] ATTENDANT care/mammo gram. She is due for a shingles vaccine. Varicella vaccination 68 344917 Z23 Hypothyroidism 07348714 E03.9 stable on meds Hyperlipidemia 96516650 E78.5 At goal on meds. Hyperglycemia 22155743 R 73.9 She is making adjustment s and we will follow. [id number] Kash Ennis PA-C Main Office [address] [address] [place] [address] 06/13/2017 10:39:48 06/13/2017 12:22:50 Palpitations 93126154 R00.2 offered re-assuran ce that her heart rate is in the normal range and her ekg was normal. will check labs for further w/u. pt encouraged to f/u c card on 06.29.17 as prev. scheduled. will fwd note to card as well 25 minute office visit with greater than 50% of the visit face-to-fa ce with the patient and/or family providing counseling and/or coordinati on of care. Hypothyroidism 19199517 E03.9 [id number] Artemio Angelo MD Main Office [address] [address] [place] [address] 08/10/2017 08:55:00 08/10/2017 09:46:41 Hypothyroidism 90412932 E03.9 stable on meds Needs infl uenza immunization 025863772 Z23 Bilateral knee pain 1187 135584 4507860 M25.561 [id number] Artemio Angelo MD Main Office [address] [address] [place] [address] 02/09/2018 09:18:32 02/09/2018 10:37:17 Adult health examination 273116430 Z00.00 She is UTD with colonoscop y and due again in 2025. Also UTD with [employer] ATTEND[employer] care/mammo gram. She is due for a shingles vaccine and was advised to get this at her pharmacy. Gilbert's syndrome 49567 000 E80.4 Info given. Hypothyroidism 93059085 E03.9 TSH is high so we will increase her dose of levothyrox ine and recheck TSH in 6-8 weeks. [id number] Jazmin Ennis PA-C Main Office [address] [address] [place] [address] 08/08/2018 12:54:56 08/08/2018 14:11:44 Facial paresthesia 12818300 R20.2 Unclear etiology L. facial paresthesi a. Past h/o TIA. Abnormal MRI with new white matter changes. NO evidence of new stroke. All labs , hospital notes and scans reviewed. Yunior. will be made with Dr. Schumacher . Continue ASA and statin therapy for stroke prevention . Anxiety state 785724401 F41.1 stressed about the symptoms and also has personal stress. Will discuss with PCP in September. [id number] Artemio Angelo MD Main Office [address] [facility] [address] [place] [address] 10/17/2018 09:15:58 10/17/2018 10:02:51 Anxiety state 527351722 F41.1 Numbness of face 8678900 09 R20.0 This is intermitte nt and she has a neurology appointmen t scheduled with Dr Schumacher . W/u in ER was negative. 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 [id number] Artemio Angelo MD Main Office [address] [address] [place] [address] 02/14/2019 10:43:22 02/14/2019 12:05:06 Adult health examination 225314285 Z00.00 She is UTD with colonoscop y and due again in 2025. Also UTD with [employer] ATTEND[employer] care/mammo gram. She is due for a shingles vaccine and was advised to get this at her pharmacy. Administra tion of viral vaccine 05802917 Z23 Menopause present 125531 006 Z78.0 Hypothyroidism 52985900 E03.9 TSH is high so we will increase her dose of levothyrox ine and recheck TSH in 6-8 weeks. [id number] Artemio Angelo MD Main Office [address] [address] [place] [address] 06/29/2019 13:22:04 06/29/2019 13:45:20 Needs influenza immunization 272098638 Z23 [id number] Artemio Angelo MD Main Office [address] [address] [place] [address] 07/31/2019 12:32:54 07/31/2019 13:23:10 Left trigeminal neuralgia 4450719357 1466617 G50.[address] Leiva and at [facility] by Dr Jain. [place] to be related to migraines but treatment has been ineffectiv e. [id number] Kishan Parekh MD Main Office [address] [address] [place] [address] 09/07/2019 09:39:22 09/07/2019 10:16:52 Acute bronchitis 38003240 J20.9 rest, hydration, otc cough med as needed Acute sinusitis 01864390 J01.90 steam, flonase, sinus nasal rinses, keep hydrated. Take med with food and consider probiotic. Call if not improving within a few days to a week, sooner if worsening. [id number] Kishan Parekh MD Main Office [address] [address] [place] [address] 09/20/2019 11:29:28 09/20/2019 12:30:55 Persistent cough 980545486 R05 LIkely airway inflammati on, try medrol dosepack, otc cough med and if not better would do cxr. Keep hydrated and rest. Pt also mentions she is off reflux med. If sx persist would add back PPI. [id number] Artemio Angelo MD Main Office [address] [address] [place] [address] 02/26/2020 13:51:40 02/26/2020 14:47:44 Adult health examination 118839990 Z00.00 She is UTD with colonoscop y and due again in 2025. Also UTD with [employer] ATTEND[employer] care/mammo gram. She is due for a shingles vaccine and was advised to get this at her pharmacy. Hypothyroidism 08385801 E03.9 Continue current dose and check labs. Hyperlipidemia 39214704 E78.5 At goal on meds. Check fasting lipid level. Pruritic disorder 382646 002 L29.9 She will try benadryl. Possibly related to seasonal allergies. [id number] Santi Hanson MD Main Office [address] [place] [address] 07/08/2020 15:17:00 07/08/2020 16:26:59 Needs influenza immunization 649245776 Z23 Abdominal pain 92362074 R10.9 likely due to constipati on will hold imaging studies for now.Rich t notes she is passing gas.Will start colace 200 mg qhs and have her titrate to 100 mg as she improves.P atient does not take PPI regularly thus advises she can start Famotidine PRN rather for quicker relief.Adv ised high fiber diet, recommende d Konsyl 1 tsp qD, advised frequent hydration at least 8 glasses daily.Prec autions discussed (fever, chills, vomiting, bloody bowel movement or vomitus, extreme abdominal pain or bilious vomitus. ) Low back pain 384572382 M54.5 Noted during PE,No CVA more lower back muscle bulk, spastic and hypertroph ied. L>R,No loss of bowel bladder function, sensation intact. No perennial anesthesia .Will start muscle relaxant and tylenol (patient does not tolerate NSAID well due to GERD, advised exercise after improvment ) [id number] Artemio Angelo MD Main Office [address] [address] [place] [address] 07/22/2020 12:37:40 07/22/2020 13:54:10 Left lower quadrant pain 393820810 R10.32 LLQ abdominal pain, loose stools and anorexia for more than 3 weeks w/o any improvemen t. Diarrhea 44015434 R19.7 Upper abdominal pain 831 13312 R10.10 Continue with PPI. [id number] Artemio Angelo MD Main Office [address] [facility] [address] [place] [address] 10/21/2020 13:33:23 10/21/2020 14:17:56 Disorder of salivary gland 12628599 K11.9 We will get an U/S to look for a mass/block age of the salivary gland and she will make an ENT appointmen t to be evaluated after the U/S is done. [id number] Kishan Parekh MD Tele[facility] [address] [address] [place] [address] 12/16/2020 08:42:56 12/16/2020 12:58:11 Vaginal discharge 411842807 N89.8 unsure of etiology, and inappropri ate for treatment from TH evaluation since needs scrap bunch maker exam - but will start initial w/u to r/o uti doubt sti since no intercours e x many yrs, doubt typical yeast infxn since no thick white dc or typical BV since no howard dc or foul odor - will attempt to have her see JT or KK later this wk meanwhile, cont probiotics , keep pushing fluids, consider cranberry juice Dysuria 44991179 R30.9 no dysuria, rather urinary freq - will check ua/c&s to r/o uti [id number] Artemio Angelo MD Main Office [address] [place] [address] 12/19/2020 09:22:00 12/19/2020 10:10:55 Acute vaginitis 27241784 N76.0 Pelvic exam done, vaginitis swab obtained, some snell thin discharge, she does take baths every night. Will tx with metrogel x 5 nights as directed and wait for results. Avoid bathing until sx resolve Increased frequency of urination 464858818 R35.0 Urine dip is negative, will end for repeat culture as 1st was contaminat ed. hydration, wipe front to back, wear loose clothing etc. [id number] Marvel Bagley MD Main Office [address] [place] [address] 01/02/2021 10:24:49 01/02/2021 11:02:02 Dysuria 80547317 R30.0 Urinary tr act infectious disease 38199534 N39.0 start Abx as directed for 5 days. Increase fluids. [id number] Artemio Angelo MD Main Office [address] [place] [address] 02/26/2021 10:47:25 02/26/2021 11:57:30 Adult health examination 584741558 Z00.00 She is UTD with colonoscop y and due again in 2025. Also UTD with RAMP ATTENDANT care/mammo gram. She is due for a shingles vaccine and was advised to get this at her pharmacy. Fatigue 20588646 R53.83 fatigue probably from weight gain and lack of exercise but will check TSH and CBC Hyperlipidemia 83268938 E78.5 At goal on meds. Check fasting lipid level. Hypothyroidism 71899084 E03.9 Continue current dose and check labs. Irritable bowel syndrome 41568352 K58.9 She often feels bloated especially after eating. She has already been evaluated by GI. [id number] Kishan Parekh MD [facility] [address] [place] [address] 05/26/2021 09:41:59 05/26/2021 15:51:30 Acute sinusitis 25527207 J01.90 see below - will empiricall y rx for possible sinusitis recommend probiotics while on abx Counseling 500104490 Z71 .9 Health advice, education or counseling done for COVID 19 pt declined getting covid tested thru [facility] - states she has to go to a wake tomorrow - so strongly encouraged her to get a rapid covid test from [place] [facility] [place] help clarify if she has covid or not - advised her to wear a mask at all times which she states she always does Abnormal vision 4772157 H54.7 pt describes cloudy vision - ? d/t cataract - has pending eye md adams on 06.15 - no pus dc or redness to suggest infectious etiology [id number] Artemio Angelo MD Main Office [address] [place] [address] 06/02/2021 11:24:16 06/02/2021 11:58:23 Acute sinusitis 16410305 J01.90 Complete course of antibiotic s. Allergic rhinitis 611638 04 J30.9 Tried claritin but may not have taken it for a long enough period. Will try a different antihistam ine. Sinus headache 8593283 R 51.9 [id number] Artemio Angelo MD Main Office [address] [place] [address] 09/01/2021 09:05:22 09/01/2021 09:47:27 Hyperlipidemia 57621375 E78.5 At goal on meds. Check fasting lipid level. Hypothyroidism 56345849 E03.9 Continue current dose and check labs. Numbness of face 0766516 09 R20.0 This is intermitte nt. W/u in ER was negative. No clear etiology establishe d although possibly related to her prior CVA. [id number] Santi Hanson MD Main Office [address] [address] [place] [address] 04/14/2022 14:47:49 04/14/2022 15:23:24 Acute pharyngitis 163654539 J02.9 likely related to postnasal secretions from sinuses. Recommend nasal saline BID and otc decongesta nts. Acute sinusitis 16455647 J01.90 begin Augmentin BID with probiotics for 10 days. [id number] Artemio Angelo MD Main Office [address] [place] [address] 04/20/2022 13:36:14 04/20/2022 15:31:42 Adult health examination 182179136 Z00.00 She is UTD with colonoscop y and due again in 2025. Also UTD with RAMP ATTEND[employer] care/mammo gram. She is due for a shingles vaccine and was advised to get this at her pharmacy. Hearing loss 83639222 H9 0.3 Wears hearing aids and followed by audiology. Chronic ki dney disease stage 2 432015092 N18.2 Recheck creatinine . Hyperlipidemia 02859688 E78.5 At goal on meds. Check fasting lipid level. Hypothyroidism 01105149 E03.9 Continue current dose and check labs. Screening for malignant neoplasm of lung 031467774 Z87.891 Eligible patients must have >=20 pack years; She smoked a pack a day for over 40 years and quit in 2010. Administra tion of pneumococcal vaccine 59749257 Z23 Administra tion of viral vaccine 48607100 Z23 [id number] Artemio Angelo MD Main Office [address] [facility] [address] [place] [address] 05/31/2022 12:53:32 05/31/2022 14:01:23 Atypical chest pain 737704893 R07.89 Doubt cardiac or PE. Appears to be muscular/ costochond ritis. May also be related to congestion from seasonal allergies. Costal chondritis 197066 04 M94.0 Allergic rhinitis 270133 04 J30.9 Advised her to use OTC meds. [id number] SHAJI MO MD Main Office [address] [place] [address] 07/27/2022 09:48:06 07/27/2022 10:25:00 History of SARS-CoV-2 4476520671 00934934 Z86.16 - pt has a history of covid pneumonia diagnosed on 07/12- pt continues to have symptoms of SOB and cough Dyspnea on exertion 6084 5006 R06.09 - recent x-ray of the chest done on 07/21 was WNL, therefore will not repeat- pt most likely has scarring from COVID-19 infection causing the SOB and cough- walking tests, 2 min, was normal SpO2 was 98%-99%- will start with symbicort to help with SOB and cough- pt can use albuterol inhaler as rescue- pt sent for PFT testing for evaluation of obstructiv e lung disease in the setting that pt was a smoker and recent COVID infection- will continue to follow-up [id number] SHAJI MO MD Main Office [address] [place] [address] 08/27/2022 09:02:18 08/27/2022 09:39:52 Dyspnea on exertion 64017239 R06.09 - recent x-ray of the chest done on 07/21 was WNL, therefore will not repeat- pt most likely has scarring from COVID-19 infection causing the SOB and cough- walking tests, 2 min, was normal SpO2 was 98%-99%- symbicort was stopped due to no improvemen t- pt can use albuterol inhaler as rescue- pt sent for PFT testing for evaluation of obstructiv e lung disease in the setting that pt was a smoker and recent COVID infection -> awaiting results- pt is concerned for possible asthma however explained to patient that medication for asthma she was given did not provide much relief therefore do not believe that is the cause- pt is also currently being worked up with her cardiologi st for dyspnea: ordered stress-gee t and ECHO- will do a short course of steroids to see if any improvemen t- will continue to follow-up Seasonal a llergic rhinitis 805928299 J30.2 - pt complainin g of increased congestion in the AM- ordered flonase to help with symptoms [id number] Artemio Angelo MD Main Office [address] [address] [place] [address] 10/19/2022 10:27:12 10/19/2022 11:04:25 Chronic kidney disease stage 2 923027581 N18.2 Recheck creatinine . Stable and will hold off on referral. Hypothyroidism 85185758 E03.9 Continue current dose and check labs. Hyperlipidemia 08806673 E78.5 At goal on meds. Check fasting lipid level. [id number] [facility] MD [facility] [address] [address] [place] [address] 12/30/2022 09:20:34 12/30/2022 10:38:06 Pain of breast 77554975 N64.4 Bilateral breast pain R>L. Does not appear to be a skin infection or related to a mass. Possible allergic reaction. Will refer to breast specialist . [id number] Artemio Angelo MD Main Office [address] [address] [place] [address] 02/01/2023 15:40:15 02/01/2023 16:30:59 Excessive weight gain 688191857 R63.5 No clear etiology for this. She is on thyroid meds and her TSH has been normal. No evidence for diabetes. Her weight gain occurred after her COVID dx 6 months ago. But a check of the chart shows that she only gains 7 lbs since that time. Her weight gain has been a slow increase over the last 5-6 years. Dyspnea on exertion 6084 5006 R06.09 Her ECHO was normal with a normal EF. She also had normal PFT's. Her SOB may be secondary to her weight gain and deconditio owen. Hyperglycemia 66605394 R 73.9 [id number] Artemio Angelo MD Main Office [address] [address] [place] [address] 05/04/2023 13:45:05 05/04/2023 15:02:00 Adult health examination 384149828 Z00.00 She is UTD with colonoscop y and due again in 2025. Also UTD with mammogram. and is no longer followed by a RAMP ATTENDANT. She is due for a shingles vaccine and was advised to get this at her pharmacy. She has an HCP in place and will send us a copy. Menopausal flushing 1983 34178 N95.1 She will try OTC products. Gastroesop hageal reflux disease 994545438 K21.9 Stable off meds. Hyperlipidemia 80400538 E78.5 At goal on meds. Check fasting lipid level. Hypothyroidism 08515702 E03.9 Continue current dose and check labs. Body mass index 30+ - obesity 818823250 Z68.30 E66.9 She has had difficulty losing weight Snoring 43212621 R06.83 She has never had a sleep study done. Varicella vaccination 68 556290 Z23 She will get this at her pharmacy. [id number] Artemio Angelo MD Main Office [address] [address] 07/14/2023 08:52:27 07/14/2023 09:42:30 Generalized anxiety disorder 73487738 F41.1 MIREYA score 21/- severe sx. she has script from ED for valium which she has not used. Encouraged to try med as needed- no driving or alcohol with med, may help with sleep or severe anxiety sx. [place] [facility] flyer provided, has phone number and website on there, she can call 11/04 and they will help get her connected with services. Moderate r ecurrent major depression 29705873 F33.1 PHQ-9 score 09/14. Has thought about dying, feels she is a disappoint ment, she denies SI or plan. Declines medication at this time, she will call [facility] for help getting in with a therapist Hypothyroidism 93081377 E03.9 will recheck thyroid labs. Tight chest 85899645 R07 .89 chest heaviness but denies palpitatio ns. sensation comes on randomly and at times feels she needs to catch her breath. Negative cardiac work-up in ED. Offered event monitor but she notes she was on a monitor in ED. Should sx worsen, she develop palpitatio ns or SOB please go to ED. [id number] Artemio Angelo MD Main Office [address] [facility] [address] [place] [address] 10/27/2023 09:47:52 10/27/2023 10:43:04 Sore nipple 565387219 N64.59 has seen breast surgery, had repeat mammo recently, taking vitamin D. will re-refer due to ongoing symptoms. Fatigue 30339229 R53.83 Generalize d anxiety disorder 22722169 F41.1 MIREYA score 06/09- seeing a therapist. Insomnia 483051231 G47.0 0 would like something to help her sleep. will trial 25mg at bedtime. Burning mo uth syndrome 001512193 K14.6 will try triamcinol one dental paste bid x 7 days. Itching of skin 40843080 0 L29.9 betamethas one daily x 7 days on, 7 days off. Hypothyroidism 88833879 E03.9 will recheck thyroid labs. Impaired f asting glycemia 234391879 R73.01 Vitamin D deficiency 347 03293 E55.9 Anemia 230374632 D64.9 Body mass index 30+ - obesity 829916421 Z68.30 E66.9 would like to try something for weight, will check labs [id number] Artemio Angelo MD Main Office [address] [facility] [address] [place] [address] 11/17/2023 13:39:34 11/17/2023 14:42:57 Insomnia 352962338 G47.00 does not want to continue trazodone, may try melatonin XR, unisom, or benadryl at bedtime. Sore nipple 068119924 N6 4.59 recent visit normal, instructed to wear sports bra at all times she does note it is helping. Generalize d anxiety disorder 42592579 F41.1 MIREYA score 06/09- seeing a therapist. Burning mo uth syndrome 001136627 K14.6 will try triamcinol one dental paste bid x 7 days. Itching of skin 94082251 0 L29.9 betamethas one daily x 7 days on, 7 days off. Hypothyroidism 37821372 E03.9 will recheck thyroid labs. Impaired f asting glycemia 196324898 R73.01 Body mass index 30+ - obesity 346213303 Z68.30 E66.9 would like to try something for weight, will check labs [id number] Artemio Angelo MD Main Office [address] [facility] [address] [place] [address] 03/21/2024 13:08:58 03/21/2024 14:35:13 Syncope 194991161 R55 Probable vasovagal episode but given her symptoms and her h/o CVA will get an MRI to r/o ischemia. Paresthesi a of bilateral hands 590415008 R20.2 No clear etiology. Has been an intermitte nt problem for a while. Vitamin D deficiency 347 00133 E55.9 [id number] Artemio Angelo MD Main Office [address] [facility] [address] [place] [address] 05/08/2024 08:56:44 05/08/2024 10:06:23 Adult health examination 823172219 Z00.00 She is UTD with colonoscop y and due again in 2024. Also UTD with mammogram. and is no longer followed by a RAMP ATTENDANT. She is due for a shingles vaccine and was advised to get this at her pharmacy. She has an HCP in place. Chronic ki dney disease stage 2 161308494 N18.2 Stable for at least 8 years. We will continue to follow. Hyperlipidemia 60376635 E78.5 At goal on meds. Check fasting lipid level. Hypothyroidism 28317775 E03.9 Continue current dose and check labs. Bone density finding 385 249815 M85.89 She will schedule her own appointmen t. Generalize d anxiety disorder 02594098 F41.1 She is ready to start a med for anxiety/de pression and we will see her back in 1 month. 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 A neurology referral was placed earlier in the month and she will call to see if she can schedule something on her own. Moderate r ecurrent major depression 16042544 F33.1 She is ready to start a med for anxiety/de pression and we will see her back in 1 month. [id number] Artemio Angelo MD Main Office [address] [facility] [address] [place] [address] 05/22/2024 13:47:12 05/22/2024 14:42:30 Increased frequency of urination 162360648 R35.0 Will treat as a UTI and check urine culture and may stop if culture is negative. Possible kidney stone given back pain and nausea but no blood in urine. If persists will get an US. [id number] Artemio Angelo MD Main Office [address] [place] [address] 06/07/2024 09:14:21 06/07/2024 10:00:43 Moderate recurrent major depression 49365851 F33.1 Doing well on meds and tolerating them well. Generalize d anxiety disorder 01540100 F41.1 Doing well on meds and tolerating them well. Idiopathic trigeminal neuropathy 819480316 G50.9 She is frustrated by the lack of a diagnosis and is looking for another opinion. [id number] Artemio Angelo MD Main Office [address] [place] [address] 12/05/2024 08:50:19 12/05/2024 09:38:19 Impaired fasting glycemia 985519190 R73.01 Her A1C was normal at 5.5. We will continue to follow twice a year. Moderate r ecurrent major depression 71215960 F33.1 Doing well on meds and tolerating them well. Generalize d anxiety disorder 37369825 F41.1 Doing well on meds and tolerating them well. Idiopathic trigeminal neuropathy 061725375 G50.9 Possible migraine equivalent s. Followed by neurology, Dr Cabrera and taking amitriptyl ine. This makes her tired and she is not sure if it is helping. She has been taking it for less than 3 months (August 2024). [id number] Kishan Parekh MD Main Office [address] [facility] [address] [place] [address] 01/17/2025 14:08:30 01/17/2025 15:22:58 Preprocedural examination done 9658971066 75606 Z01.818 offered re-assuran ce c normal ekg Impaired f asting glycemia 801699058 R73.01 but no predm c a1c 5.5 Mitral aleida ve regurgitation 43689087 I34.0 stable, cont f/u c card Moderate r ecurrent major depression 14831267 F33.1 Idiopathic trigeminal neuropathy 997348986 G50.9 History of transient ischemic attack 587651602 Z86.73 stable Hyperlipidemia 43968335 E78.5 Hypothyroidism 57129334 E03.9 Gastroesop hageal reflux disease 781969841 K21.9 Health Concerns Section Related Observation LastModified by Organization Detai ls LastModified Time None Recorded Concern Status LastModified by Organization Details LastModified Time None Recorded Advance Directives Directive Y: 01/29/2016 Payers Insurance Date Sequence Insurance Name Policy Number Policy Ibrahim Covered Member ID Ibrahim Member ID Guarantor Name 01/29/2025 2 [facility] - MEDICARE ENH[facility] (INDEMNITY PLAN) Brenda A Sibilia-Oracio thiaume [id number] Brenda A Sibilia-Be rthiaume 04/20/2023 2 [facility] (PPO) [id number] Brenda A Sibilia-Oracio thiaume [id number] Brenda A Sibilia-Be rthiaume 08/31/[address] [facility] HEALTH PLAN (POS) [id number] Brenda A Sibilia Gianna [id number] Brenda A Sibilia-Be rthiaume 02/10/2016 1 [facility] (HMO) [id number] Brenda Ida Chua [id number] Brenda A Sibilia-Be rthiaume 02/10/2016 1 [facility] [id number] Brenda Ida Chua [id number] Brenda A Sibilia-Be rthiaume 01/17/2025 1 [place]: [employer] Brenda A Sibilia Gianna [id number] Brenda A Sibilia-Be rthiaume Notes Date Note Type Note Provider Name and Address Organization Details Recorded Time 05/08/2024 text/html Medicare Annual Wellness VisitReported bypatient.Diet and Nutrition:healthy diet; discussed maintaining calcium balance; discussed diet improvement Fracture Risk:no history of fractures Physical Activity:exercises on a regular basis; good physical condition; discussed exercise habits Depression Risk:no loss of interest in activities; no significant changes in weight; no sleep disturbances or insomnia; no agitation; no loss of energy; no feelings of worthlessness or guilt; no thoughts of suicide;feels sad, empty, or tearful;history of mood disorders;history of depression; she has been estranged from her son and grandchild and recently has become estranged from her daughter as well. She is not totally clear why this has happened but her daughter describes her as toxic . Orientation:no disorientation to time; no disorientation to date; no disorientation to place Concentration and Memory:no decreased concentrating ability; no memory lapses or loss; does not forget words Speech/Motor difficulties:no speech difficulties; no slowed reaction time Hearing:loss of hearing: in both ears; wears hearing aids Vision:no vision problems Activities of Daily Living:able to bathe with limited or no assistance; able to contol urination and bowels; able to dress with limited or no assistance; able to feed self with limited or no assistance; able to get out of chair or bed with limited or no assistance; able to groom with limited or no assistance; able to toilet with limited or no assistance Instrumental Activities of Daily Living:able to do house work with limited or no assistance; able to grocery shop with limited or no assistance; able to manage medications with limited or no assistance; able to manage money with limited or no assistance; able to prepare meals with limited or no assistance; able to use the phone with limited or no assistance Falls Risk Assessment:no frequent falls while walking She continues to have idiopathic left sided facial pain. A neurology referral was placed earlier in the month and she still hasn't heard about an appointment. Rossana patel [facility] 05/14/2024 11:01:57 05/22/2024 text/html Started 2 days a go with urinary frequency and nocturia. Also urinating a small amount w/o dysuria. Hesitancy and urgency. Also with back pain on the right side. Nausea w/o vomiting and MESSER. No f/c. No h/o kidney stones. Artemio Angelo MD [address] [address], [place], [address], [facility] 05/22/2024 14:48:29 06/07/2024 text/html Anxiety/Depressi onRe ported bypatient.Quality:sy mptoms improved Severity:able to maintain relationships; does not interfere with activities of daily living Context:family problems Associated Symptoms:no significant weight gain; no significant weight loss; mood good; sleeping well; appetite good; energy good; maintaining functionalityNotes:S he is estranged from her son and her daughter. She is not clear why this is the case especially with her son since they were very close in the past. She continues to have numbness at the left side of her face. This has been a problem for more than 6 years. She has been seen by neurology here (Dr Schumacher) and at [facility] who felt that it was a migraine equivalent but it has persisted. Artemio Angelo MD [address], [address], [facility] 06/07/2024 11:25:03 12/05/2024 text/html Anxiety/Depressi onRe ported bypatient.Quality:sy mptoms improved Severity:able to maintain relationships; does not interfere with activities of daily living Context:family problems Associated Symptoms:no significant weight gain; no significant weight loss; mood good; sleeping well; appetite good; energy good; maintaining functionalityNotes:S he is estranged from her son and her daughter. She is not clear why this is the case especially with her son since they were very close in the past. She is also taking care of her 96 year old mother who has been failing and has been in the hospital frequently over the last 6 months. She continues to have numbness at the left side of her face. This has been a problem for more than 6 years. She has been seen by neurology here (Dr Schumacher) and at [facility] who felt that it was a migraine equivalent but it has persisted. She is currently taking amitriptyline 10 mg which makes her tired and she is not sure if it is helping but she continues with it. This was started by Dr Cabrera. She has had impaired fasting glucose in the past. We have been monitoring this. Artemio Angelo MD [address], [address], [facility] 12/05/2024 10:05:12 01/17/2025 text/html Pre-op Lt Foot G reat Toe Total Joint Replacement. Left great Toe Surgery date: 01/23/25 Dr. Howe she already stopped her baby asa yesterday Kash Ennis PA-C [address] [address], [place], [address], [facility] 01/17/2025 17:26:38 OBGyn Episode No OBEpisode recorded.
== END 2025-04-09 12:13 | disposition home or self-care (01) ==
LOC: HO.HSM 11:51
PROVIDERS: PCP Internal Medicine; Visit Provider Psychiatry & Neurology Neurology
DX: G43.109 Migraine with aura, not intractable, without status migrainosus (principal)
CPT/HCPCS: 99214

== ENCOUNTER → 2025-04-09 11:50 | Outpatient (BNVA) | payer MEDICARE, OTHER, SELFPAY | PROVIDERS: PCP Internal Medicine; Visit Provider Psychiatry & Neurology Neurology | DX: G43.109 Migraine with aura, not intractable, without status migrainosus (principal) | CPT/HCPCS: 99212 ==